=== PATIENT | male | born 1950 | race Caucasian/White ===

== ENCOUNTER 2022-10-24 23:19 | Outpatient (CLI) | payer MEDICARE, BC, SELFPAY | END 2022-10-24 23:20 | disposition home or self-care (01) | LOC: AMB 10-25 11:36 | PROVIDERS: Visit Provider Family Medicine | DX: R53.1 Weakness (principal) | CPT/HCPCS: A0425; A0427 ==

== ENCOUNTER 2022-10-25 00:07 | Emergency (ER) | payer MEDICARE, BC, SELFPAY ==
[2022-10-25 00:16] VITALS: BP 167/96; PULSE 113; TEMP 36.8; O2SAT 95; BMI 33.9
[2022-10-25 00:41] LABS: Appearance Urine Clear (Clear); Bilirubin Urine Negative (Negative); Blood Urine Negative (Negative); Color Urine Yellow (Yellow); Glucose Urine Trace (Negative); Ketones Urine Trace (Negative); Leukocyte Esterase Urine Negative (Negative); Nitrite Urine Negative (Negative); Protein Urine 3+ (Negative); Specific Gravity Urine 1.025 (1.000-1.030); Urobilinogen Urine 0.2 (0.2-1.0)
[2022-10-25 00:45] VITALS: O2SAT 98
--- NOTE | 2022-10-25 00:48 | ED.GENADULT ---
HPI - General Adult General Chief complaint: Weakness Stated complaint: weakness Time Seen by Provider: 10/25/22 00:07 Source: patient, family and EMS Mode of arrival: EMS History of Present Illness HPI narrative: 72-year-old male with notable history of chronic kidney disease, diabetes, hypertension presents to the emergency department for evaluation of generalized weakness. Symptoms started this evening. Patient reported that it was difficult to get up from the couch. Family brought up his walker from the basement which he no longer uses. He did briefly use a walker a few years ago after a about of COVID from which she had several weeks of illness but eventually rehabilitated back to baseline. Patient states that his arms and legs have felt weak today. When he got up to go to the bathroom this evening a couple of hours prior to arrival, he says that his legs felt weak again and buckled under him, causing him to fall. He denies any areas of pain but was unable to get himself back up. He states that when he went to stand up out of bed, he was unable to hold his own weight up and just slowly slid to the floor, no dramatic fall. Did not hit his head. His granddaughter was home at the time and heard the thud, went to check on him. He was fully conscious, no evidence of seizure activity. He states states had ?the sniffles? but no major illness. No fevers, no abdominal pain, no vomiting, no productive cough. On specific questioning, it does sound as though he was seen by his kidney doctor within the last couple of weeks. His lisinopril was increased from 20 mg once daily to 30 mg twice daily. His other medications do not appear to have been altered. I do review that visit, family is able to pull it up on my chart. At the time his creatinine was 1.04. He does have significant proteinuria but is renal ultrasound was reassuring. It looks like there are still some pending parts of the workup. The plan was to do a kidney biopsy if the proteinuria does not improve within a couple of months. He denies any NSAID use. No known illness exposures or pertinent travel. Past medical history notable for type 2 diabetes, hypertension, chronic kidney disease. Home meds are lisinopril 30 mg twice daily, not what is listed in the EMR, Crestor, Trulicity, aspirin 81 once daily, Tricor, metformin a 1000 twice daily pioglitazone and glipizide 20 mg twice daily. Socially, continues live independently does not receive any home health services. Has excellent family involvement. He will use a cane when going out from the house but not typically for ADLs. Surgical history reviewed. ROS is notable for the generalized weakness, otherwise denies times 12 systems. Related Data Home Medications Medication Instructions Recorded Confirmed aspirin 81 mg tablet,delayed 81 mg PO DAILY 10/25/22 10/25/22 release (Adult Low Dose Aspirin) dulaglutide 0.75 mg/0.5 mL 0.75 mg subcut QWEEK 10/25/22 10/25/22 subcutaneous pen injector (Trulicity) lisinopril 30 mg tablet 30 mg PO DAILY 10/25/22 10/25/22 rosuvastatin 20 mg tablet (Crestor) 20 mg PO DAILY 10/25/22 10/25/22 Allergies Allergy/AdvReac Type Severity Reaction Status Date / Time No Known Drug Allergies Allergy Verified 10/25/22 00:10 PFSH PFS Social History Smoking Status: Never smoker Do you use any of these nicotine containing products: None How often do you have a drink containing alcohol: never AUDIT-C Alcohol total score: 0 Non-prescribed substance use: denies use service: Yes ([employer]) Exam Const: Vital Signs, click to edit/add: Vital Signs - 24 hr 10/25/22 00:16 10/25/22 00:45 10/25/22 01:32 Temperature 98.3 F Pulse Rate 112 H Pulse Rate [Left P ulse Oximeter] 113 H Respiratory Rate 16 Blood Pressure 167/96 H Blood Pressure [Le ft Upper Arm] 167/96 H Pulse Oximetry 95 98 95 Oxygen Delivery Me thod Room Air 10/25/22 02:02 Temperature Pulse Rate 100 Pulse Rate [Left P ulse Oximeter] Respiratory Rate 16 Blood Pressure 165/99 H Blood Pressure [Le ft Upper Arm] Pulse Oximetry 96 Oxygen Delivery Me thod Documenting provider has reviewed patient's vital signs: yes Common normals: no apparent distress and alert General appearance: cooperative and well kempt HENMT: Common normals: normocephalic and head/scalp atraumatic Head and scalp: normocephalic and atraumatic Mouth: oral and palatal mucosa normal Throat: posterior oropharynx normal Eye: Common normals: PERRL, EOMs intact bilaterally and conjunctivae normal Conjunctiva: conjunctiva(e) normal Pupil: PERRL Neck & C-Spine: Common normals: full ROM and no lymphadenopathy Cervical spine: no cervical spine tenderness Resp: Common normals: normal respiratory effort, no use of accessory muscles and clear to auscultation bilaterally Effort & inspection: able to speak in complete sentences Auscultation: clear to auscultation bilaterally Cardio: Common normals: regular rate, regular rhythm, S1 normal heart sound, S2 normal heart sound and no murmurs Rate: regular rate Rhythm: regular rhythm Heart sounds: S1 normal and S2 normal GI: Common normals: Normal to inspection, nondistended, normoactive bowel sounds present, soft to palpation, non-tender, no hepatosplenomegaly and no masses Palpation: soft and no hepatosplenomegaly Extremity: Other: 1+ edema to the mid tibia. No obvious tenderness to palpation of the pelvis, knees, elbows or wrists. Neuro: Sensorium/orientation: alert Speech: speech normal Motor exam: no tremor noted and no movement abnormalities noted Other: Strength is technically 5/5 but reduced from what I would expect from baseline. He is able to pull himself up using the side rails but cannot hold himself up long enough to perform proper pulmonary exam. Psych: Appearance: well kempt Activity/motor behavior: appropriate eye contact Attention/concentration: attention grossly intact Insight: insight good Judgement: judgment good Skin: Common normals: no rashes or lesions noted Narrative: No signs of bruising, lacerations. General skin exam: no rashes or lesions noted Course Vital Signs Vital signs: Initial Vital Signs Temperature 98.3 F 10/25/22 00:16 Temperature Source Temporal Artery Scan 10/25/22 00:16 Pulse Rate 113 H 10/25/22 00:16 Pulse Rhythm 10/25/22 00:16 Blood Pressure 167/96 H 10/25/22 00:16 Blood Pressure Mean 119 10/25/22 00:16 Pulse Oximetry 95 10/25/22 00:16 Oxygen Delivery Method 10/25/22 00:16 Vital Signs Temperature 98.3 F 10/25/22 00:16 Pulse Rate 113 H 10/25/22 00:16 Blood Pressure 167/96 H 10/25/22 00:16 Pulse Oximetry 95 10/25/22 00:16 Oxygen Delivery Method 10/25/22 00:16 Temperature 98.3 F 10/25/22 00:16 Pulse Rate 100 10/25/22 02:02 Respiratory Rate 16 10/25/22 02:02 Blood Pressure 165/99 H 10/25/22 02:02 Pulse Oximetry 96 10/25/22 02:02 Oxygen Delivery Method 10/25/22 00:16 Medical Decision Making MDM Narrative Medical decision making narrative: Generalized weakness, suspect medical etiology. Infection high in the differential diagnosis but cannot exclude acute kidney failure and electrolyte abnormality from recent medication adjustments. Recommended initial labs, urinalysis, EKG, screenings for infection. Await results. Update: Labs are quite reassuring. The proteinuria is ongoing for him. No other localizing symptoms of infection besides positive COVID swab. This certainly would explain his weakness. Oxygen levels remain normal. We discussed hospitalization. He does not qualify for inpatient treatment but may qualify for observation. They are not interested in senior care placement. He would like to try to go home. Assures me that he has a walker, help at home. I insist that we try a trial of ambulation with a walker here in the emergency department and if he does well with this, I would consider discharge. Update: Patient was able to ambulate around the emergency department with the use of our walker. We did observe that the walker he brought is far too short for his tall frame. He was agreeable to us dispensing a walker from our supply and understands that his insurance will be billed for this. He did sign the paperwork as did I regarding this. Family and I discussed the risks and benefits of Paxil of it and the other medications for COVID. I do feel like the risk outweighs the benefits with his kidney disease. Family agrees that they would not want to take this risk. Alarm symptoms reviewed as indications to come back to the ED. They verbalized understanding and agreement. Lab Data Lab results reviewed: Yes I reviewed the patient's lab results Labs: Lab Results 10/25/22 10/25/22 10/25/22 Range/Units 00:26 00:26 01:00 WBC 9.47 (4.50-11.00) K/uL RBC 5.23 (4.30-5.90) m/uL Hgb 16.6 (13.5-17.5) gm/dL Hct 48.1 (37.0-53.0) % MCV 92 (80-100) fL MCH 32 (26-34) pg MCHC 35 (32-36) gm/dL RDW Coeff of [place] 12.5 (11.5-15.5) % Plt Count 183 (140-440) K/uL Neut % (Auto) 83.3 H (42.0-72.0) % Lymph % (Auto) 8.6 L (20-44) % [place] % (Auto) 6.1 (0.0-11.0) % Eos % (Auto) 1.3 (0.0-7.0) % Baso % (Auto) 0.4 (0.0-3.0) % Neut # (Auto) 7.90 H (1.7-7.0) K/uL Lymph # (Auto) 0.80 L (0.90-2.90) K/uL [place] # (Auto) 0.60 (0.00-0.90) K/UL Eos # (Auto) 0.12 (0.00-0.50) K/uL Baso # (Auto) 0.04 (0.00-0.30) K/uL VBG pH (7.32-7.43) VBG pCO2 (40-50) mmHG VBG pO2 (25-47) mmHG VBG HCO3 (21-28) mmol/L Sodium (135-149) mmol/L Potassium (3.6-5.1) mmol/L Chloride (96-114) mmol/L Carbon Dioxide (20-32) mmol/L BUN (7-30) mg/dL Creatinine (0.5-1.5) mg/dL Estimated Creat Clear Estimated GFR ml/min Glucose (60-115) mg/dL Lactate (0.5-1.9) mmol/L Calcium (8.4-10.6) mg/dL Magnesium (1.5-2.6) mg/dL Total Bilirubin (0.1-1.5) mg/dL AST (12-35) U/L ALT (4-50) U/L Alkaline Phosphatase (40-150) U/L Troponin I (0.01-0.04) ng/mL C-Reactive Protein (0.5-1.0) mg/dL NT-Pro-B Natriuret Pep pg/mL Total Protein (6.0-8.3) g/dL Albumin (3.3-5.0) g/dL Procalcitonin (<0.50) ng/mL Urine Color Yellow (Yellow) Urine Appearance Clear (Clear) Urine pH 7.0 (5.0-8.5) Ur Specific [place] 1.025 (1.000-1.030) Urine Protein 3+ A (Negative) Urine Glucose (UA) Trace A (Negative) Urine Ketones Trace A (Negative) Urine Blood Negative (Negative) Urine Nitrite Negative (Negative) Urine Bilirubin Negative (Negative) Urine Urobilinogen 0.2 (0.2-1.0) Ur Leukocyte Esterase Negative (Negative) Urine RBC 0-2 (0-2) Urine WBC 0-2 (0-5) Ur Squamous Epith Cells Few (None-Few) Amorphous Sediment Few A (None) Urine Bacteria None (None) SARS-CoV-2 (PCR) POSITIVE SARS-CoV-2 A (Negative) Influenza Type A (PCR) Negative PCR FLU A (Negative) Influenza Type B (PCR) Negative PCR FLU B (Negative) RSV (PCR) Negative PCR RSV (Negative) POC Troponin I (0.01-0.04) ng/ml 10/25/22 10/25/22 10/25/22 Range/Units 01:00 01:00 01:00 WBC (4.50-11.00) K/uL RBC (4.30-5.90) m/uL Hgb (13.5-17.5) gm/dL Hct (37.0-53.0) % MCV (80-100) fL MCH (26-34) pg MCHC (32-36) gm/dL RDW Coeff of [place] (11.5-15.5) % Plt Count (140-440) K/uL Neut % (Auto) (42.0-72.0) % Lymph % (Auto) (20-44) % [place] % (Auto) (0.0-11.0) % Eos % (Auto) (0.0-7.0) % Baso % (Auto) (0.0-3.0) % Neut # (Auto) (1.7-7.0) K/uL Lymph # (Auto) (0.90-2.90) K/uL [place] # (Auto) (0.00-0.90) K/UL Eos # (Auto) (0.00-0.50) K/uL Baso # (Auto) (0.00-0.30) K/uL VBG pH (7.32-7.43) VBG pCO2 (40-50) mmHG VBG pO2 (25-47) mmHG VBG HCO3 (21-28) mmol/L Sodium 137 (135-149) mmol/L Potassium 4.2 (3.6-5.1) mmol/L Chloride 104 (96-114) mmol/L Carbon Dioxide 25 (20-32) mmol/L BUN 18 (7-30) mg/dL Creatinine 1.1 (0.5-1.5) mg/dL Estimated Creat Clear 65.65 Estimated GFR 71 ml/min Glucose 218 H (60-115) mg/dL Lactate 2.2 H (0.5-1.9) mmol/L Calcium 9.5 (8.4-10.6) mg/dL Magnesium 1.4 L (1.5-2.6) mg/dL Total Bilirubin 0.7 (0.1-1.5) mg/dL AST 26 (12-35) U/L ALT 28 (4-50) U/L Alkaline Phosphatase 81 (40-150) U/L Troponin I 0.01 (0.01-0.04) ng/mL C-Reactive Protein 1.4 H (0.5-1.0) mg/dL NT-Pro-B Natriuret Pep 66 pg/mL Total Protein 6.4 (6.0-8.3) g/dL Albumin 4.0 (3.3-5.0) g/dL Procalcitonin 0.08 (<0.50) ng/mL Urine Color (Yellow) Urine Appearance (Clear) Urine pH (5.0-8.5) Ur Specific [place] (1.000-1.030) Urine Protein (Negative) Urine Glucose (UA) (Negative) Urine Ketones (Negative) Urine Blood (Negative) Urine Nitrite (Negative) Urine Bilirubin (Negative) Urine Urobilinogen (0.2-1.0) Ur Leukocyte Esterase (Negative) Urine RBC (0-2) Urine WBC (0-5) Ur Squamous Epith Cells (None-Few) Amorphous Sediment (None) Urine Bacteria (None) SARS-CoV-2 (PCR) (Negative) Influenza Type A (PCR) (Negative) Influenza Type B (PCR) (Negative) RSV (PCR) (Negative) POC Troponin I (0.01-0.04) ng/ml 10/25/22 10/25/22 Range/Units 01:00 01:05 WBC (4.50-11.00) K/uL RBC (4.30-5.90) m/uL Hgb (13.5-17.5) gm/dL Hct (37.0-53.0) % MCV (80-100) fL MCH (26-34) pg MCHC (32-36) gm/dL RDW Coeff of [place] (11.5-15.5) % Plt Count (140-440) K/uL Neut % (Auto) (42.0-72.0) % Lymph % (Auto) (20-44) % [place] % (Auto) (0.0-11.0) % Eos % (Auto) (0.0-7.0) % Baso % (Auto) (0.0-3.0) % Neut # (Auto) (1.7-7.0) K/uL Lymph # (Auto) (0.90-2.90) K/uL [place] # (Auto) (0.00-0.90) K/UL Eos # (Auto) (0.00-0.50) K/uL Baso # (Auto) (0.00-0.30) K/uL VBG pH 7.427 (7.32-7.43) VBG pCO2 38 L (40-50) mmHG VBG pO2 25.0 (25-47) mmHG VBG HCO3 25 (21-28) mmol/L Sodium (135-149) mmol/L Potassium (3.6-5.1) mmol/L Chloride (96-114) mmol/L Carbon Dioxide (20-32) mmol/L BUN (7-30) mg/dL Creatinine (0.5-1.5) mg/dL Estimated Creat Clear Estimated GFR ml/min Glucose (60-115) mg/dL Lactate (0.5-1.9) mmol/L Calcium (8.4-10.6) mg/dL Magnesium (1.5-2.6) mg/dL Total Bilirubin (0.1-1.5) mg/dL AST (12-35) U/L ALT (4-50) U/L Alkaline Phosphatase (40-150) U/L Troponin I (0.01-0.04) ng/mL C-Reactive Protein (0.5-1.0) mg/dL NT-Pro-B Natriuret Pep pg/mL Total Protein (6.0-8.3) g/dL Albumin (3.3-5.0) g/dL Procalcitonin (<0.50) ng/mL Urine Color (Yellow) Urine Appearance (Clear) Urine pH (5.0-8.5) Ur Specific [place] (1.000-1.030) Urine Protein (Negative) Urine Glucose (UA) (Negative) Urine Ketones (Negative) Urine Blood (Negative) Urine Nitrite (Negative) Urine Bilirubin (Negative) Urine Urobilinogen (0.2-1.0) Ur Leukocyte Esterase (Negative) Urine RBC (0-2) Urine WBC (0-5) Ur Squamous Epith Cells (None-Few) Amorphous Sediment (None) Urine Bacteria (None) SARS-CoV-2 (PCR) (Negative) Influenza Type A (PCR) (Negative) Influenza Type B (PCR) (Negative) RSV (PCR) (Negative) POC Troponin I 0.00 L (0.01-0.04) ng/ml Discharge Plan Discharge Clinical Impression: Episode of generalized weakness, COVID Patient Disposition: Home w/ Parent or Adult Condition: Stable Instructions: COVID-19 (Coronavirus Disease 2019) (ED) Additional Instructions: Since you are vaccinated, your course of COVID this time is likely to be less severe. Your much less likely to experience respiratory complications. You are still likely to have weakness of your muscles for 5-10 days. You do not meet criteria to come into the hospital at this time and have declined a senior care. As we discussed, there are medications that can lessen the severity of COVID. They tend to be very hard on the kidneys and therefore I do not recommend them for you. It is important that you use a walker at home. Ask for help from her family for going to the bathroom and other activities. Is okay to use Tylenol as needed for body aches. Come back to the emergency department if you are severely weak or if you have difficulty breathing. Activity Level: Activity as Tolerated and Use Walker Discharge Diet: Diabetic Prescriptions: No Action Trulicity 0.75 mg/0.5 mL pen injector 0.75 mg subcut QWEEK aspirin [Adult Low Dose Aspirin] 81 mg tablet,delayed release (DR/EC) 81 mg PO DAILY lisinopril 30 mg tablet 30 mg PO DAILY rosuvastatin [Crestor] 20 mg tablet 20 mg PO DAILY Follow Up/Referrals: Provider,Not a Local [Primary Care Provider] - Stand Alone Forms: [employer] Info Instructions
[2022-10-25 00:59] LABS: Amorphous Sediment Urine Few; RBC Urine 0-2 (0-2); Squamous Epithelial Cell Urine Few (None-Few); WBC Urine 0-2 (0-5)
[2022-10-25 01:14] LABS: Basophils Absolute Auto 0.04 K/uL (0.00-0.30); Basophils Percent Auto 0.4 % (0.0-3.0); Eosinophils Absolute Auto 0.12 K/uL (0.00-0.50); Eosinophils Percent Auto 1.3 % (0.0-7.0); Hematocrit 48.1 % (37.0-53.0); Hemoglobin* 16.6 gm/dL (13.5-17.5); Immature Granulocytes Abs Auto 0.03 K/uL (0.00-0.30); Immature Granulocytes Pct Auto 0.3 %; Lymphocytes Percent Auto 8.6 % (20-44); Mean Corpuscular HGB Conc 35 gm/dL (32-36); Mean Corpuscular Hemoglobin 32 pg (26-34); Mean Corpuscular Volume 92 fL (80-100); Monocytes Percent Auto 6.1 % (0.0-11.0); Neutrophils Percent Auto 83.3 % (42.0-72.0); Platelet Count* 183 K/uL (140-440); RDW Coefficient of Variation % 12.5 % (11.5-15.5); Red Blood Count 5.23 m/uL (4.30-5.90); White Blood Count* 9.47 K/uL (4.50-11.00)
[2022-10-25 01:14] LABS: PCR FLU A Negative PCR FLU A (Negative); PCR FLU B Negative PCR FLU B (Negative); PCR RSV Negative PCR RSV (Negative)
[2022-10-25 01:20] LABS: Slide Review Reflex No
[2022-10-25 01:28] LABS: HCO3 VBG 25 mmol/L (21-28); PCO2 VBG 38 mmHG (40-50); pH VBG 7.427 (7.32-7.43)
[2022-10-25 01:32] VITALS: BP 167/96; PULSE 112; RESP 16; O2SAT 95
[2022-10-25 01:34] LABS: Chloride* 104 mmol/L (96-114); Potassium* 4.2 mmol/L (3.6-5.1); Sodium* 137 mmol/L (135-149)
[2022-10-25 01:36] LABS: SARS PCR* POSITIVE SARS-CoV-2 (Negative)
[2022-10-25 01:36] LABS: Creatinine* 1.1 mg/dL (0.5-1.5); Est. Creatinine Clearance* 65.65; Estimated Glomerular Filt Rate 71 ml/min; Lactate* 2.2 mmol/L (0.5-1.9)
[2022-10-25 01:37] LABS: Alanine Aminotransferase* 28 U/L (4-50); Alkaline Phosphatase* 81 U/L (40-150); Aspartate Amino Transferase* 26 U/L (12-35); Bilirubin Total* 0.7 mg/dL (0.1-1.5); Blood Urea Nitrogen* 18 mg/dL (7-30); Carbon Dioxide* 25 mmol/L (20-32); Glucose* 218 mg/dL (60-115); Total Protein* 6.4 g/dL (6.0-8.3)
[2022-10-25 01:38] LABS: Calcium* 9.5 mg/dL (8.4-10.6); Magnesium* 1.4 mg/dL (1.5-2.6)
[2022-10-25 01:40] LABS: C Reactive Protein* 1.4 mg/dL (0.5-1.0)
[2022-10-25 01:48] LABS: NT Pro B Type NatriureticPept* 66 pg/mL
[2022-10-25 01:49] LABS: Troponin I* 0.01 ng/mL (0.01-0.04)
[2022-10-25 01:56] LABS: Procalcitonin* 0.08 ng/mL (<0.50)
[2022-10-25 02:02] VITALS: BP 165/99; PULSE 100; RESP 16; O2SAT 96
--- NOTE | 2022-10-25 02:21 | ED.NURSE ---
pt. able to ambulate with walker around ER. pt. denies dizziness, lightheadedness. will problaby d/c home with granddaughter.
--- NOTE | 2022-10-25 02:33 | ED.NURSE ---
walker form filled out by , pt took walker from house sup. education and sizing adjusted. pt able to walk in hallway in ED to pass walking test for .
== END 2022-10-25 02:48 | disposition home or self-care (01) ==
PROVIDERS: Emergency Provider Family Medicine
DX: U07.1 COVID-19 (principal)
CPT/HCPCS: 36415; 80053; 81003; 81015; 82803; 83605; 83735; 83880; 84145; 84484; 85025; 86140; 87502; 87634; 87635; 93005; 94761; 99283; 99284

== ENCOUNTER 2022-10-28 01:47 | Outpatient (CLI) | payer MEDICARE, BC, SELFPAY | END 2022-10-28 01:48 | disposition home or self-care (01) | LOC: AMB 11:10 | PROVIDERS: Visit Provider Family Medicine | DX: R53.1 Weakness (principal) | CPT/HCPCS: A0998 ==

== ENCOUNTER 2023-04-10 18:43 | Emergency (ER) | payer MEDICARE, BC, SELFPAY ==
[2023-04-10] VITALS (14 sets, daily range): BP systolic 128–142; BP diastolic 75–88; PULSE 70–84; RESP 20; TEMP 35.9; O2SAT 94–98; BMI 33.9
--- NOTE | 2023-04-10 19:21 | ED.NURSE ---
Patient pushed call button to reports return of dizziness. Blood pressure and pulse oximetry were check and neuro exam. Patient has nystagmus noted in both eyes, all other neuro's intact. MD was notified.
--- NOTE | 2023-04-10 19:56 | CRLHL7_ITS ---
For Patients: As a result of the Century Cures Act, medical imaging exams and procedure reports are released immediately into your electronic medical record. You may view this report before your referring provider. If you have questions, please contact your health care provider. CT ANGIOGRAM HEAD DATE: 04/10/2023 CLINICAL HISTORY: Patient with dizziness and vertigo. TECHNIQUE: Standard helical CT image acquisition through the intracranial circulation following intravenous administration of contrast material with bolus tracking. 2D and 3D MIP images for post-processing were performed and interpreted on an independent workstation and 3D images were permanently archived. COMPARISON: CT same day. FINDINGS: There is no proximal intracranial large vessel occlusion. There is no intracranial aneurysm. The right internal carotid artery is normal. The right middle cerebral artery and its branches are normal. The right anterior cerebral artery and its branches are normal. The left internal carotid artery is normal. The left middle cerebral artery and its branches are normal. The left anterior cerebral artery and its branches are normal. The anterior communicating artery is well visualized and appears normal. The right vertebral artery and PICA are normal. The left vertebral artery and PICA are normal. The left vertebral artery is dominant. The basilar artery is patent and appears normal. The right posterior cerebral artery is normal. The left posterior cerebral artery is normal. The visualized venous structures are patent. IMPRESSION: Patent proximal intracranial vasculature. Please note that all CT scans at this facility use dose modulation, iterative reconstruction, and/or weight-based dosing when appropriate to reduce radiation dose to as low as reasonably achievable. Dictated by: Alphonso Singer MD @ 04/10/2023 21:35:11 (Electronically Signed)
--- NOTE | 2023-04-10 19:56 | CRLHL7_ITS ---
For Patients: As a result of the Century Cures Act, medical imaging exams and procedure reports are released immediately into your electronic medical record. You may view this report before your referring provider. If you have questions, please contact your health care provider. CT ANGIOGRAM NECK DATE: 04/10/2023 CLINICAL HISTORY: Patient with dizziness, vertigo. TECHNIQUE: Standard helical CT image acquisition of the neck up to the skull base after bolus intravenous contrast enhancement. 2D and 3D MIP images for post-processing were performed and interpreted on an independent workstation and 3D images were permanently archived. COMPARISON: CT same day. FINDINGS: The origins of the great vessels from the aortic arch are patent. The origin of the right vertebral artery is patent. The origin of the left vertebral artery is patent. The common carotid arteries are patent. There is no stenosis at the origin of the right internal carotid artery. There is no stenosis at the origin of the left internal carotid artery. The rest of the cervical segments of the internal carotid arteries are patent up to the skull base. The left vertebral artery is dominant. The cervical segments of the vertebral arteries are patent up to the skull base. The visualized lung apices are unremarkable. 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 The soft tissues of the neck are unremarkable. There are degenerative changes in the cervical spine. IMPRESSION: Normal CTA of the neck. Please note that all CT scans at this facility use dose modulation, iterative reconstruction, and/or weight-based dosing when appropriate to reduce radiation dose to as low as reasonably achievable. Dictated by: Alphonso Singer MD @ 04/10/2023 21:33:52 (Electronically Signed)
--- NOTE | 2023-04-10 19:57 | CRLHL7_ITS ---
For Patients: As a result of the Century Cures Act, medical imaging exams and procedure reports are released immediately into your electronic medical record. You may view this report before your referring provider. If you have questions, please contact your health care provider. CT HEAD DATE: 04/10/2023 CLINICAL HISTORY: Patient with dizziness and vertigo. TECHNIQUE: Standard CT scanning of the head was performed. COMPARISON: None. FINDINGS: There is no intracranial hemorrhage. There is no territorial infarction. There are mild microangiopathic changes. There is severe diffuse parenchymal volume loss. There is no mass effect or midline shift. The calvarium is unremarkable. The orbits are unremarkable. The paranasal sinuses demonstrate mild maxillary sinus mucosal thickening. The mastoid air cells are unremarkable. The soft tissues are unremarkable. IMPRESSION: 1. No intracranial hemorrhage or territorial infarction. 2. Mild microangiopathic changes and severe diffuse parenchymal volume loss. Please note that all CT scans at this facility use dose modulation, iterative reconstruction, and/or weight-based dosing when appropriate to reduce radiation dose to as low as reasonably achievable. Dictated by: Alphonso Singer MD @ 04/10/2023 21:31:12 (Electronically Signed)
--- NOTE | 2023-04-10 19:59 | ED.GENADULT ---
HPI - General Adult General Date Seen: 04/10/23 Chief complaint: Dizziness/Vertigo Stated complaint: bp is high, dizzy Time Seen by Provider: 04/10/23 19:03 History of Present Illness HPI narrative: This is a very pleasant 73-year-old gentleman with a past medical history including diabetes, hypertension, overweight, who presents to the ER today with his granddaughter with concern for dizzy spells and vertigo as well as high blood pressure. Patient recalls that when he woke up this morning (he normally sleep laying on his side in bed) he had a fairly abrupt onset of spinning dizziness and vertigo. Symptoms lasted a few minutes and then resolved. No other symptoms with that episode. No headache. No nausea. No numbness or tingling in his face, arms, or legs. He generally felt back to normal later on this morning. He had another episode of dizziness that happened this afternoon when he woke up from his nap. He was again napping in bed. This episode was again vertigo without any other symptoms. It lasted a few minutes and then resolved. And his granddaughter were checking his vital signs. Blood pressure was a bit elevated about 150 systolic. Blood sugar was elevated at 191. Oxygen was normal at 98%. Because of the dizzy spells and high blood pressure they decided to come in he had a 3rd self limited episode of vertigo and dizziness that happened while he was on the way to the hospital. He had a 4th episode of vertigo that happened while he was resting in bed upon arrival here in the ER. No other symptoms aside from spinning and dizziness. At the time of my evaluation he is not having any symptoms. No headache. No recent head trauma. No fever. No blurry vision or double vision. No nausea or vomiting. No chest pain. No palpitations. No lightheadedness. No other recent vomiting or diarrhea. He does not smoke. Related Data Home Medications Medication Instructions Recorded Confirmed aspirin 81 mg tablet,delayed 81 mg PO DAILY 10/25/22 04/10/23 release (Adult Low Dose Aspirin) dulaglutide 0.75 mg/0.5 mL 0.75 mg subcut QWEEK 10/25/22 04/10/23 subcutaneous pen injector (Trulicity) lisinopril 30 mg tablet 30 mg PO DAILY 10/25/22 04/10/23 rosuvastatin 20 mg tablet (Crestor) 20 mg PO DAILY 10/25/22 04/10/23 amlodipine 2.5 mg tablet 2.5 mg PO DAILY 04/10/23 04/10/23 fenofibrate nanocrystallized 48 mg 48 mg PO DAILY 04/10/23 04/10/23 tablet glipizide 10 mg tablet 20 mg PO BID 04/10/23 04/10/23 metformin 1,000 mg tablet 1,000 mg PO BID 04/10/23 04/10/23 pioglitazone 15 mg tablet 15 mg PO DAILY 04/10/23 04/10/23 Previous Rx's Medication Instructions Recorded meclizine 25 mg tablet 25 mg PO TID PRN dizziness #15 tabs 04/10/23 Allergies Allergy/AdvReac Type Severity Reaction Status Date / Time No Known Drug Allergies Allergy Verified 10/25/22 00:10 Review of Systems Narrative: Negative [facility] Social History Smoking Status: Never smoker Do you use any of these nicotine containing products: None How often do you have a drink containing alcohol: never AUDIT-C Alcohol total score: 0 Non-prescribed substance use: denies use service: Yes ([employer]) Exam Narrative: Exam Narrative: Constitutional: Appears well-developed and well-nourished. Alert. Conversant. Non toxic. HENT: Head: Atraumatic. Nose: Nose normal. Mouth/Throat: Oral mucosa is clear and moist. no trismus. Pharynx normal. Tonsils symmetric. No tonsillar enlargement, erythema, or exudate. Eyes: Conjunctivae normal. EOM normal. Pupils equal, round, and reactive to light. No scleral icterus. Neck: Normal range of motion. Neck supple. No tracheal deviation present. Cardiovascular: Normal rate, regular rhythm. No gallop. No friction rub. No murmur heard. Symmetric radial artery pulses Pulmonary/Chest: Effort normal. No stridor. No respiratory distress. No wheezes. No rales. No rhonchi . No tenderness. Abdominal: Soft. Bowel sounds normal. No distension. No mass. No tenderness. No rebound. No guarding. Musculoskeletal: RUE: Normal range of motion. No tenderness. No deformity LUE: Normal range of motion. No tenderness. No deformity RLE: Normal range of motion. No edema. No tenderness. No deformity LLE: Normal range of motion. No edema. No tenderness. No deformity Lymph: No cervical adenopathy. Mental status normal. Attention normal. Alert and oriented x3. GCS 15. Memory normal. Speech fluent. Cognition normal. Cranial Nerves intact II-XII except I did not formally test gag or visual acuity. EOMI. Palate elevates symmetrically and tongue protrudes in the midline. Strength: 5/5 trapezius on the right and left 5/5 deltoid on the right and left 5/5 biceps on the right and left 5/5 triceps on the right and left 5/5 patternmaker metal bench on the right and left 5/5 thumb opposition on the right and left 5/5 finger abduction on the right and left 5/5 hip flexors (L3) on the right and left 5/5 quadriceps (L4) on the right and left 5/5 tibialis anterior on the right and left 5/5 EHL (L5) on the right and left 5/5 gastrocnemius (S1) on the right and left 5/5 hamstring on the right and left Sensation intact to light touch in both upper extremities (C4-T1) Sensation intact to light touch in Both lower extremities (L4-S1). Finger to nose, heel martinez, and coordination normal. Gait normal. Romberg negative. [place]-Hallpike maneuver with his head turned to the left does trigger vertigo and positive horizontal nystagmus . In this case I am not able really to identify the fast and slow phase of the nystagmus. Vertigo was fatigable.. We followed [place]-Hallpike maneuver with Jay maneuver. We were able to trigger another episode of fatigable vertigo turning his head to the right but not able to trigger much vertigo turning his head down. After completion of Jay, When he sat back up, he still had mild vertigo, but less intense than the episodes prior to arrival. Skin: Skin is warm and dry. No rash noted. No pallor. Normal capillary refill. Psychiatric: Normal mood. Normal affect. Const: Vital Signs, click to edit/add: Vital Signs - 24 hr 04/10/23 18:48 04/10/23 19:19 04/10/23 19:20 Temperature 96.7 F L Pulse Rate 77 74 Pulse Rate [Pulse Oximeter] 82 Respiratory Rate 20 Blood Pressure 133/81 Blood Pressure [Ri ght Upper Arm] 128/75 Pulse Oximetry 96 94 94 Oxygen Delivery Me thod Room Air 04/10/23 19:30 Temperature Pulse Rate 74 Pulse Rate [Pulse Oximeter] Respiratory Rate Blood Pressure Blood Pressure [Ri ght Upper Arm] Pulse Oximetry 95 Oxygen Delivery Me thod Course Vital Signs Vital signs: Initial Vital Signs Temperature 96.7 F L 04/10/23 18:48 Temperature Source Temporal Artery Scan 04/10/23 18:48 Pulse Rate 82 04/10/23 18:48 Respiratory Rate 20 04/10/23 18:48 Blood Pressure 128/75 04/10/23 18:48 Blood Pressure Mean 92 04/10/23 18:48 Blood Pressure Position Supine 04/10/23 18:48 Pulse Oximetry 96 04/10/23 18:48 Oxygen Delivery Method Room Air 04/10/23 18:48 Vital Signs Temperature 96.7 F L 04/10/23 18:48 Pulse Rate 82 04/10/23 18:48 Respiratory Rate 20 04/10/23 18:48 Blood Pressure 128/75 04/10/23 18:48 Pulse Oximetry 96 04/10/23 18:48 Oxygen Delivery Method Room Air 04/10/23 18:48 Temperature 96.7 F L 04/10/23 18:48 Pulse Rate 74 04/10/23 19:30 Respiratory Rate 20 04/10/23 18:48 Blood Pressure 133/81 04/10/23 19:19 Pulse Oximetry 95 04/10/23 19:30 Oxygen Delivery Method Room Air 04/10/23 18:48 Medical Decision Making MDM Narrative Medical decision making narrative: This patient presents for evaluation of dizziness c/w vertigo. Laboratory workup does not show any other alternative explanation for dizziness such as ACS, anemia, electrolyte disturbance, hypoglycemia. Kidney function is normal. EKG shows sinus rhythm with a first-degree AV block. No arrhythmia or ischemia. The differential diagnosis of vertigo is broad and includes common etiologies such as menieres disease, labyrinthitis, benign positional vertigo, otitis media, etc. More serious etiologies considered include central etiologies such as tumor, intracerebral bleed, dissection, ischemic cerebral vascular accident. The history, physical exam including detailed neurologic exam, and workup in the emergency room suggests a benign cause of vertigo today. Clinically I am suspicious that the patient probably has been experiencing episodes of BPPV. We were able to trickle vertigo with [place]-Hallpike starting with his head turned to left but not able to completely resolve the vertigo with an Jay maneuver. Patient has risk factors for cerebrovascular disease including hypertension, diabetes, weight, age, gender. He was not having any active vertigo symptoms by the time I evaluated in the ER. However blood pressure was still mildly elevated at about 150 when he 1st arrived. I did order labs and head CT/CTA for further evaluation. At the time of this dictation the patient is remaining asymptomatic after the Jay maneuver. We are awaiting the results of his CT CTA. Discussed with my oncoming partner. Discussed with the patient and his granddaughter. They are aware of the change in positions and the potential plan for discharge if CT imaging is reassuring. Lab Data Labs: Lab Results 04/10/23 Range/Units 20:13 WBC 7.02 (4.50-11.00) K/uL RBC 5.27 (4.30-5.90) m/uL Hgb 16.6 (13.5-17.5) gm/dL Hct 49.7 (37.0-53.0) % MCV 94 (80-100) fL MCH 32 (26-34) pg MCHC 33 (32-36) gm/dL RDW Coeff of Yamileth 13.0 (11.5-15.5) % Plt Count 185 (140-440) K/uL Neut % (Auto) 59.7 (42.0-72.0) % Lymph % (Auto) 26.9 (20-44) % Fountain % (Auto) 8.4 (0.0-11.0) % Eos % (Auto) 4.1 (0.0-7.0) % Baso % (Auto) 0.6 (0.0-3.0) % Neut # (Auto) 4.19 (1.7-7.0) K/uL Lymph # (Auto) 1.89 (0.90-2.90) K/uL Fountain # (Auto) 0.60 (0.00-0.90) K/UL Eos # (Auto) 0.29 (0.00-0.50) K/uL Baso # (Auto) 0.04 (0.00-0.30) K/uL Abs Immat Gran (auto) 0.02 (0.00-0.30) K/uL Imm/Tot Granulo (auto) 0.3 % Sodium 139 (135-149) mmol/L Potassium 4.8 (3.6-5.1) mmol/L Chloride 104 (96-114) mmol/L Carbon Dioxide 25 (20-32) mmol/L Anion Gap 10 (7-15) mEq/L BUN 21 (7-30) mg/dL Creatinine 1.3 (0.5-1.5) mg/dL Estimated Creat Clear 54.72 Estimated GFR 58 ml/min Glucose 180 H (60-115) mg/dL Calcium 10.3 (8.4-10.6) mg/dL Troponin I < 0.01 L (0.01-0.04) ng/mL ECG Data Attestation: I personally reviewed and interpreted this ECG as follows: Interpretation: Normal sinus rhythm rate 74 [place] 254. First degree AV block QRS axis left anterior fascicular block. No pathologic Q-waves. ST segment/T wave: No ST segment elevation depression. QTc: 421 Discharge Plan Discharge Clinical Impression: Vertigo Instructions: Vertigo (ED), Benign Paroxysmal Positional Vertigo (DC) Additional Instructions: Please return to the ER right away if you have any worsening symptoms such as more extended. The vertigo, headache, vomiting, numbness or tingling in your face, trouble speaking, numbness or tingling or weakness in your arms or legs, trouble walking, or if you have any concerns. Prescriptions: New meclizine 25 mg tablet 25 mg PO TID PRN (Reason: dizziness) Qty: 15 0RF No Action Trulicity 0.75 mg/0.5 mL pen injector 0.75 mg subcut QWEEK aspirin [Adult Low Dose Aspirin] 81 mg tablet,delayed release (DR/EC) 81 mg PO DAILY lisinopril 30 mg tablet 30 mg PO DAILY rosuvastatin [Crestor] 20 mg tablet 20 mg PO DAILY pioglitazone 15 mg tablet 15 mg PO DAILY glipizide 10 mg tablet 20 mg PO BID amlodipine 2.5 mg tablet 2.5 mg PO DAILY metformin 1,000 mg tablet 1,000 mg PO BID fenofibrate nanocrystallized 48 mg tablet 48 mg PO DAILY Follow Up/Referrals: Provider,Not a Local [Primary Care Provider] -
[2023-04-10 20:18] LABS: Basophils Absolute Auto 0.04 K/uL (0.00-0.30); Basophils Percent Auto 0.6 % (0.0-3.0); Eosinophils Absolute Auto 0.29 K/uL (0.00-0.50); Eosinophils Percent Auto 4.1 % (0.0-7.0); Hematocrit 49.7 % (37.0-53.0); Hemoglobin* 16.6 gm/dL (13.5-17.5); Immature Granulocytes Abs Auto 0.02 K/uL (0.00-0.30); Immature Granulocytes Pct Auto 0.3 %; Lymphocytes Absolute Auto 1.89 K/uL (0.90-2.90); Lymphocytes Percent Auto 26.9 % (20-44); Mean Corpuscular HGB Conc 33 gm/dL (32-36); Mean Corpuscular Hemoglobin 32 pg (26-34); Mean Corpuscular Volume 94 fL (80-100); Monocytes Percent Auto 8.4 % (0.0-11.0); Neutrophils Absolute Auto 4.19 K/uL (1.7-7.0); Neutrophils Percent Auto 59.7 % (42.0-72.0); Platelet Count* 185 K/uL (140-440); Red Blood Count 5.27 m/uL (4.30-5.90); White Blood Count* 7.02 K/uL (4.50-11.00)
[2023-04-10 20:24] LABS: Slide Review Reflex No
[2023-04-10 20:32] LABS: Chloride* 104 mmol/L (96-114); Potassium* 4.8 mmol/L (3.6-5.1); Sodium* 139 mmol/L (135-149)
[2023-04-10 20:34] LABS: Creatinine* 1.3 mg/dL (0.5-1.5); Est. Creatinine Clearance* 54.72; Estimated Glomerular Filt Rate 58 ml/min
[2023-04-10 20:35] LABS: Anion Gap 10 mEq/L (7-15); Blood Urea Nitrogen* 21 mg/dL (7-30); Calcium* 10.3 mg/dL (8.4-10.6); Carbon Dioxide* 25 mmol/L (20-32); Glucose* 180 mg/dL (60-115)
[2023-04-10] MEDS: MECLIZINE HCL 25 MG TABLET PO (20:36)
[2023-04-10 20:48] LABS: Troponin I* < 0.01 ng/mL (0.01-0.04)
== END 2023-04-10 22:14 | disposition home or self-care (01) ==
PROVIDERS: Emergency Provider Emergency Medicine
DX: R42 Dizziness and giddiness (principal)
CPT/HCPCS: 36415; 70450; 70496; 70498; 80048; 82565; 84484; 85025; 99283; 99284; 99285; A9270; Q9967

== ENCOUNTER 2025-07-24 13:07 | Emergency (ER) | payer MEDICARE, BC, SELFPAY ==
[2025-07-24 13:09] VITALS: BP 144/88; PULSE 81; RESP 16; TEMP 36.1; O2SAT 98; BMI 31.9
--- OUTSIDE RECORDS SUMMARY | 2025-07-24 13:23 | XMS_ITS | Encounter Summary ---
Author Organization [place] Address [address] [facility] [place] [address] Care Team Providers Care Roasterman Name Role Phone Maricel Marinelli MD Unavailable [phone] Ashleigh Walden MD Unavailable [phone] Ashleigh Walden MD Unavailable [phone] Ashleigh Walden MD Unavailable [phone] Maricel Marinelli MD Primary Care Provider [phone] Reason for Visit * ReasonOnset DateCommentsMedication Mhbvtmgn30/07/2025 Encounter Details DateTypeDepartmentCare Team (Latest Contact Info)Rknpvaooeks80/07/2025Telephone [address] [place] [address] Maricel Marinelli MD [address] [place] [address] [id number] Medication Question Social History Tobacco UseTypesPacks/DayYears UsedDateSmoking Tobacco: NeverPassive Smoke Exposure: PastSmokeless Tobacco: NeverAlcohol UseStandard Drinks/WeekCommentsYes 0.8 (1 standard drink = 0.6 oz pure alcohol)special occasions onlyPHQ-2Answer Date RecordedPHQ-2 Innlp683dolescent EducationAnswerDate Recorded Getting School Help NeededNot on 04/29/2023Food InsecurityAnswerDate RecordedWithin the past 12 months, did you worry that your food would run out before you got money to buy more?No06/01/2023Within the past 12 months, did the food you bought just not last and you didn???t have money to getmore?No 06/01/2023Housing StabilityAnswerDate RecordedDo you have housing? (Housing is defined as stable permanent housing and does not include staying outside in a car, in a tent, in an abandoned building, in an overnight intermediate, or couch-surfing.)Yes06/01/2023re you worried about losing your housing?No 06/01/2023Financial Resource StrainAnswerDate RecordedWithin the past 12 months, have you or your family members you live with been unable to get utilities (heat, electricity) when it was really needed?No06/01/2023Transportation Needs AnswerDate RecordedWithin the past 12 months, has lack of transportation kept you from medical appointments, getting your medicines, non-medical meetings or appointments, work, or from getting things that you need?No06/01/2023Sex and Gender InformationValueDate RecordedSex Assigned at BqowdNevf07/23/2022 2:52 PM CSTLegal CmjDiie4110/27/2020 4:43 PM CDTGender QcdfdydjVvtp28/23/2022 2:52 PM BUILDING MAINTENANCE REPAIRER Sexual OyzurezxxpyZteszqny67/23/2022 2:52 PM CSTdocumented as of this encounter Miscellaneous Notes * Telephone Encounter - Kait Braxton MA - 06/23/2025 11:55 AM BUILDING MAINTENANCE REPAIRER Patient notified. He understands. DING MAINTENANCE REPAIRER * Telephone Encounter - Dominique Garza LPN - 06/20/2025 12:23 PM BUILDING MAINTENANCE REPAIRER Contacts Contact Date/Time Type Contact Phone/Fax 06/13/2025 10:29 AM BUILDING MAINTENANCE REPAIRER Phone (Incoming) Kale Baird (Self) [phone] (M) 06/13/2025 12:15 PM BUILDING MAINTENANCE REPAIRER Phone (Outgoing) aMritzaKale phillips (Self) [phone] (M) Talked with Patient 06/20/2025 12:05 PM BUILDING MAINTENANCE REPAIRER Phone (Outgoing) Kale Baird (Self) [phone] (M) Talked with Patient 06/20/2025 12:22 PM BUILDING MAINTENANCE REPAIRER Phone (Outgoing) [facility] [address] (Pharmacy) [phone] 06/20/2025 12:23 PM BUILDING MAINTENANCE REPAIRER Phone (Outgoing) KhadardheerajKale phillips (Self) [phone] (M) Left Message Attempted to reach patient to: Relay a message Regarding: Trulicty dose Action to take: OK to relay (verbatim): Please notify pt of below message from Dr. Marinelli. Okay to route to RN line if pt has further questions/concerns. tell patient that I prefer he increase his trulicity to 3mg and decrease his glipizide dosing by half as that will help him to lose weight and keep his A1c down. Is there a reason he doesn't want the higher dose of Trulicity (cost, side effects etc?) it is important he watch his BS, especially ifhe has low BG symptoms.Have him call back if having problems. DING MAINTENANCE REPAIRER * Telephone Encounter - Dominique Garza LPN - 06/20/2025 12:07 PM BUILDING MAINTENANCE REPAIRER Called and spoke with pt. Pt states that the script needs to be sent for 3mg once a week. Pt is currently using 1.75mg but is able to use up to 3mg weekly. Script will be updated with [facility]. Verbal adjustment made with [facility] pharmacy for pt to receive medications. DING MAINTENANCE REPAIRER DING MAINTENANCE REPAIRER * Telephone Encounter - Maricel Marinelli MD - 06/20/2025 12:04 PM BUILDING MAINTENANCE REPAIRER Please tell patient that I prefer he increase his trulicity to 3mg and decrease his glipizide dosing by half as that will help him to lose weight and keep his A1c down. Is there a reason he doesn't want the higher dose of Trulicity (cost, side effects etc?) BTW if you look at the complete series of messages, it originally said he was upset a Rx for 3mg had not been done. So it is important he watch his BS, especially if he has low BG symptoms.Have him call back if having problems. DING MAINTENANCE REPAIRER * Telephone Encounter - Madelaine Talbert - 06/20/2025 10:45 AM CST Tristan, Patient is upset, he contacted [facility], it seems his dosing for Trulicity was written for 3mg daily. He is injecting 1.5mg weekly. Could this please be remedied a soon as possible? Thank you, Madelaine Talbert Prescription Aircraft Worker Prescription Assistance Program Department Pool: [facility] DING MAINTENANCE REPAIRER * Telephone Encounter - Eileen Mackenzie MA - 06/16/2025 5:26 PM CST Done and faxed. Eileen Mackenzie MA on 06/16/2025 at 5:26 PM DING MAINTENANCE REPAIRER * Telephone Encounter - Kait Braxton MA - 06/16/2025 1:20 PM CST Printed and placed in DR Marinelli inbox DING MAINTENANCE REPAIRER * Telephone Encounter - Leonides Bonner - 06/16/2025 12:18 PM CST Images from the original note were not included. Received Message from Pt upset that a new script was not sent for 3 mg Trulicity a week ago. Started Form, Please Review and complete.(In Media Tab) Thank you DING MAINTENANCE REPAIRER * Telephone Encounter - Maricel Marinelli MD - 06/15/2025 9:48 PM BUILDING MAINTENANCE REPAIRER Can we get MTM to help figure out what needs to be done? I believe it was they who helped the pt toget the medication at discount or free gómez. Or can Kait tell what's going on with this med? Need switch or vials or what? DING MAINTENANCE REPAIRER * Telephone Encounter - Rosangela Whitfield RN - 06/13/2025 12:31 PM CST Spoke with [employer]. The retail representative stated they can no longer fill dulaglutide and that theyhave a department who might know where it can be filled. The wait time for this department was verylong so I was unable to speak with anyone about it at this time. Routing this information to the patient's PCP in case they know anywhere else this medication can be filled at a discounted rate. Rosangela Whitfield RN [facility] DING MAINTENANCE REPAIRER * Telephone Encounter - Alka Lacy I - 06/13/2025 10:29 AM CST General Call Contacts Contact Date/Time Type Contact Phone/Fax 06/13/2025 10:29 AM BUILDING MAINTENANCE REPAIRER Phone (Incoming) Kale Baird (Self) [phone] (M) Reason for Call: Medication question What are your questions or concerns: Pt called and stated [facility] didn't receive his Rx that was sent on 06/09/2025. TC advised that we have confirmation that they received it at 1:08PM BUILDING MAINTENANCE REPAIRER. Pt is wondering if someone from the clinic can call the pharmacy for him and confirm that they have it or not. Pt is wondering if we can find out when the mailed it to him if they did receive it. Dulaglutide 3 MG/0.5ML SOAJ 2 mL 1 06/07/2025 -- No Sig - Route: Inject 3 mg subcutaneously once a week. - Subcutaneous Date of last appointment with provider: 06/02/2025 Could we send this information to you in [facility] or would you prefer to receive a phone call?: Patient would prefer a phone call Okay to leave a detailed message?: Yes at Cell number on file: Telephone Information: Alka Lacy DING MAINTENANCE REPAIRER documented in this encounter Plan of Treatment DateTypeDepartmentCare Team (Latest Contact Info)Thfbfydiark34/06/2026 1:00 PM CSTLab [facility] [address] [place] [phone] 08/12/2025 2:00 PM CSTOffice Visit [facility] [address] [phone] Ashleigh Walden MD [address] [place] [address] [phone] documented as of this encounter Visit Diagnoses Diagnosis Type 2 diabetes mellitus with hyperglycemia, without long-term current use of insulin (H) documented in this encounter Care Teams Team MemberRelationshipSpecialtyStart DateEnd Date Maricel Marinelli MD [address] [facility] [address] [address] PCP - GeneralFamily Vymaahwf34/23/25 Maricel Marinelli MD [address] [facility] [address] [address] Assigned PCP01/20/21 Ashleigh Walden MD [address] [facility] [address] [address] Germanrology09/21/22 Ashleigh Walden MD [address] [facility] [address] [address] Assigned Nephrology Provider10/08/22 Ashleigh Walden MD [address] [facility] [address] [address] Germanrology04/19/23documented as of this encounter
--- OUTSIDE RECORDS SUMMARY | 2025-07-24 13:23 | XMS_ITS | Encounter Summary ---
Author Organization [facility] Address [address] [place] [address] Care Team Providers Care Interpretive Naturalist Name Role Phone Maricel López MD Unavailable [phone] Ashleigh Walden MD Unavailable [phone] Ashleigh Walden MD Unavailable [phone] Ashleigh Walden MD Unavailable [phone] Maricel López MD Primary Care Provider [phone] Reason for Referral * Medication Prior Authorization - ClosedSpecialtyDiagnoses / ProceduresReferred By ContactReferred To Contact Diagnoses Type 2 diabetes mellitus with stage 3a chronic kidney disease, without long-term current use of insulin (H) Maricel López MD [address] [place] [address] Phone: tel: fax: Referral IDStatusReasonStart DateExpiration DateVisits RequestedVisits [id number] [facility] [[email or web address] Reason for Visit * ReasonOnset DateCommentsPrior Auth - Oupqixsttz13/05/[id number] Jardiance PAP Renewal Encounter Details DateTypeDepartmentCare Team (Latest Contact Info)Ysrvvdwymgq94/05/2025Telephone [address] [place] [address] Maricel López MD [address] [facility] [address] [place] [address] Prior Auth - Medication (2025 Jardiance PAP Renewal) Social History Tobacco UseTypesPacks/DayYears UsedDateSmoking Tobacco: NeverPassive Smoke Exposure: PastSmokeless Tobacco: NeverAlcohol UseStandard Drinks/WeekCommentsYes 0.8 (1 standard drink = 0.6 oz pure alcohol)special occasions onlyPHQ-2Answer Date RecordedPHQ-2 Wjnqo026dolescent EducationAnswerDate Recorded Getting School Help NeededNot on file04/29/2023Food InsecurityAnswerDate RecordedWithin the past 12 months, did [...] in an abandoned building, in an overnight detention, or couch-surfing.)Yes06/01/2023re you worried about losing your [...] need?No06/01/2023Sex and Gender InformationValueDate RecordedSex Assigned at UwsauJibj14/23/2022 2:52 PM CSTLegal FluKvye7410/27/2020 4:43 PM CDTGender IbqztnetItmx33/23/2022 2:52 PM CHARTER AND TOUR BUS DRIVER Sexual YtyxhsmfoemHpeltgec12/23/2022 2:52 PM CSTdocumented as of this encounter Miscellaneous Notes * Telephone Encounter - Madelaine Talbert - 07/22/2025 10:08 AM CST Faxed patients documents, waiting on PT's forms to be mailed back. TER AND TOUR BUS DRIVER * Telephone Encounter - Maricel López MD - 07/12/2025 8:42 PM CHARTER AND TOUR BUS DRIVER Could you please verify that this had been done correctly? Thanks TER AND TOUR BUS DRIVER * Telephone Encounter - Eileen Russell MA - 07/11/2025 5:13 PM CST Refill for Jardiance pended for convenience and to be sent to [facility] per advocate for pharmacy assistance. Eileen Russell MA on 07/11/2025 at 5:13 PM TER AND TOUR BUS DRIVER * Telephone Encounter - Madelaine Talbert - 07/11/2025 1:56 PM CST [facility] has requested financial assistance due to the cost of Jardiance (re-enrollment). The provider portion of the application has been *uploaded to the patient media tab. Please send 90 day/ refill electronic prescriptions -[facility] I- [id number] in the eRX software. Then sign, date and FAX the application directly to the extension worker. Thank you for your assistance, Madelaine Talbert Prescription Tube Making Machine Operator Prescription Assistance Program Department Pool: RXAssist *The RX Assist Department, PAP applications are transitioning (primarily) to an electronic workflow; [employer] [place], [employer] and Email. The team is excited to serve our patients with this new expedited process! TER AND TOUR BUS DRIVER * Telephone Encounter - Madelaine Talbert - 07/11/2025 1:55 PM CST FREE DRUG APPLICATION INITIATED Medication: JARDIANCE 10 MG PO TABS Free Drug Program Name: [employer] Date Submitted: 07/11/2025 1:55 PM Additional Information: Forms mailed to PT, uploaded to Media file for MD TER AND TOUR BUS DRIVER * Addendum Note - Eileen Russell MA - 07/11/2025 1:54 PM CSTAddended by: EILEEN RUSSELL on: 07/11/2025 05:15 PM Modules accepted: Orders TER AND TOUR BUS DRIVER * Addendum Note - Maricel López MD - 07/11/2025 1:54 PM CSTAddended by: MARICEL LÓPEZ on: 07/12/2025 08:38 PM Modules accepted: Orders TER AND TOUR BUS DRIVER documented in this encounter Plan of Treatment DateTypeDepartmentCare Team (Latest Contact Info)Slmnxdrwnup65/06/2026 1:00 PM CSTLab [facility] [address] 1st [place] [address] 08/12/2025 2:00 PM CSTOffice Visit [facility] [address] [phone] Ashleigh Walden MD [address] [place] [phone] documented as of this encounter Visit Diagnoses Diagnosis Type 2 diabetes mellitus with stage 3a chronic kidney disease, without long-term current use of insulin (H) documented in this encounter Care Teams Team MemberRelationshipSpecialtyStart DateEnd Date Maricel López MD [address] [facility] [address] [address] PCP - GeneralFamily Xmqmwkcn55/23/25 Maricel López MD [address] [facility] [address] [place] [address] Assigned PCP01/20/21 Ashleigh Walden MD [address] [facility] [address] [place] [address] Germanrology09/21/22 Ashleigh Walden MD [address] [facility] [address] [place] [address] Assigned Nephrology Provider10/08/22 Ashleigh Walden MD [address] [facility] [address] [place] [address] Germanrology04/19/23documented as of this encounter
--- OUTSIDE RECORDS SUMMARY | 2025-07-24 13:23 | XMS_ITS | Encounter Summary ---
Author Organization [facility] Address [address] [place] [address]. [place] [address] Care Team Providers Care Dentistry Professor Name Role Phone Maricel Marinelli MD Unavailable [phone] Ashleigh Walden MD Unavailable [phone] Ashleigh Walden MD Unavailable [phone] Ashleigh Walden MD Unavailable [phone] Maricel Marinelli MD Primary Care Provider + [phone] Encounter Details DateTypeDepartmentCare Team (Latest Contact Info)Lygubspdade25/01/2025Results Follow-Up [address] [place] [phone] Maricel Marinelli MD [address] [place] [address] [id number] Subj: Message about your results Social History Tobacco UseTypesPacks/DayYears UsedDateSmoking Tobacco: NeverPassive Smoke Exposure: PastSmokeless Tobacco: NeverAlcohol UseStandard Drinks/WeekCommentsYes 0.8 (1 standard drink = 0.6 oz pure alcohol)special occasions onlyPHQ-2Answer Date RecordedPHQ-2 Dmhes740dolescent EducationAnswerDate Recorded Getting School Help NeededNot on [...] in an abandoned building, in an overnight mcfp, or couch-surfing.)Yes06/01/2023re you worried about losing your [...] need?No06/01/2023Sex and Gender InformationValueDate RecordedSex Assigned at AtgkxEivf64/23/2022 2:52 PM CSTLegal DunYqcs6810/27/2020 4:43 PM CDTGender VbnleagdBmtc69/23/2022 2:52 PM RN INTEGRATED Sexual YfvlxasodedSppfybcd56/23/2022 2:52 PM CSTdocumented as of this encounter Miscellaneous Notes * Telephone Encounter - Lesa Ponce CMA - 06/09/2025 7:14 AM RN INTEGRATED Results letter printed and mailed INTEGRATED * Telephone Encounter - Maricel Marinelli MD - 06/07/2025 10:54 PM CDT Result letter composed--please mail. documented in this encounter Plan of Treatment DateTypeDepartmentCare Team (Latest Contact Info)Twxpcxlhtyg83/06/2026 1:00 PM CSTLab [facility] [place] [address] [facility] 1st [place] [phone] 08/12/2025 2:00 PM CSTOffice Visit [facility] [address] [phone] Ashleigh Walden MD [address] [place] [address] documented as of this encounter Visit Diagnoses Not on filedocumented in this encounter Care Teams Team MemberRelationshipSpecialtyStart DateEnd Date Maricel Marinelli MD [address] [place] [address] PCP - GeneralFamily Elghpnwe16/23/25 Maricel Marinelli MD [address] [place] [address] Assigned PCP01/20/21 Ashleigh Walden MD [address] [place] [address] [facility]09/21/22 Ashleigh Walden MD [address] [place] [address] [address] Assigned Nephrology Provider10/08/22 Ashleigh Walden MD [address] [place] [address] [address] [facility]04/19/23documented as of this encounter
--- OUTSIDE RECORDS SUMMARY | 2025-07-24 13:23 | XMS_ITS | Encounter Summary ---
Author Organization [place] [facility] Address [address] [place] [address] Care Team Providers Care Sales Lead Generator Name Role Phone Maricel López MD Unavailable [phone] Ashleigh Walden MD Unavailable [phone] Ashleigh Walden MD Unavailable [phone] Ashleigh Walden MD Unavailable [phone] Maricel López MD Primary Care Provider [phone] Reason for Referral * Medication Prior Authorization - AuthorizedSpecialtyDiagnoses / Procedures Referred By ContactReferred To Contact Diagnoses Type 2 diabetes mellitus with stage 3a chronic kidney disease, without long-term current use of insulin (H) Maricel López MD [address] [place] [address] Phone: tel: fax: Referral IDStatusReasonStart DateExpiration DateVisits RequestedVisits [id number]/8/202512/7/202611 [facility] Reason for Visit * ReasonOnset DateCommentsPrior Auth - Jkvdrxvzoo85/25/[id number] PAP Renewals Encounter Details DateTypeDepartmentCare Team (Latest Contact Info)Zpdjuqscvnt58/25/2025Telephone [address] [place] [address] Maricel López MD [address] [facility] [address] [place] [address] Prior Auth - Medication (2025 PAP Renewals) Social History Tobacco UseTypesPacks/DayYears UsedDateSmoking Tobacco: NeverPassive Smoke Exposure: PastSmokeless Tobacco: NeverAlcohol UseStandard Drinks/WeekCommentsYes 0.8 (1 standard drink = 0.6 oz pure alcohol)special occasions onlyPHQ-2Answer Date RecordedPHQ-2 Ltgga397dolescent EducationAnswerDate Recorded Getting School Help NeededNot on [...] in an abandoned building, in an overnight long term, or couch-surfing.)Yes06/01/2023re you worried about losing your [...] need?No06/01/2023Sex and Gender InformationValueDate RecordedSex Assigned at YnomoFbep09/23/2022 2:52 PM CSTLegal TzaGbsd8410/27/2020 4:43 PM CDTGender WnkrylynHojw85/ 2:52 PM LEATHER TOOLER Sexual MjuzfqqovtsRifpfzpl76/23/2022 2:52 PM CSTdocumented as of this encounter Miscellaneous Notes * Telephone Encounter - Madelaine Talbert - 07/22/2025 10:07 AM CST Faxed patients documents, waiting on PT's forms to be mailed back. HER TOOLER * Telephone Encounter - Maricel López MD - 07/12/2025 8:40 PM LEATHER TOOLER Could you please verify that this was done correctly? Thanks HER TOOLER * Telephone Encounter - Madelaine Talbert - 07/11/2025 1:52 PM CST [facility] has requested financial assistance due to the cost of Trulicity (re-enrollment). The provider portion of the application has been *uploaded to the patient media tab. Please send 120 day/2 refill electronic prescription -[facility] NPI-[id number] inthe eRX software. Then sign, date and FAX the application directly to the digital forensic analyst. Thank you for your assistance, Madelaine Talbert Prescription Renewable Energy Trader Prescription Assistance Program Department Pool: RXAssist *The RX Assist Department, PAP applications are transitioning (primarily) to an electronic workflow; [employer], [employer] and Email. The team is excited to serve our patients with this new expedited process! HER TOOLER * Telephone Encounter - Madelaine Talbert - 06/20/2025 10:53 AM CST FREE DRUG APPLICATION INITIATED Medication: TRULICITY 1.5 MG/0.5ML SC SOAJ Free Drug Program Name: [employer] [facility] Date Submitted: 05/31/2025 5:40 PM Will need to mail apps HER TOOLER * Addendum Note - Eileen Russell MA - 05/31/2025 5:39 PM CDTAddended by: EILEEN RUSSELL on: 07/11/2025 05:13 PM Modules accepted: Orders HER TOOLER * Addendum Note - Maricel López MD - 05/31/2025 5:39 PM CDTAddended by: MARICEL LÓPEZ on: 07/12/2025 08:37 PM Modules accepted: Orders HER TOOLER documented in this encounter Plan of Treatment DateTypeDepartmentCare Team (Latest Contact Info)Zuupltkzkwl60/06/2026 1:00 PM CSTLab [facility] [address] [phone] 08/12/2025 2:00 PM CSTOffice Visit [facility] [address] [phone] Ashleigh Walden MD [address] [place] [address] documented as of this encounter Visit Diagnoses Diagnosis Type 2 diabetes mellitus with stage 3a chronic kidney disease, without long-term current use of insulin (H) documented in this encounter Care Teams Team MemberRelationshipSpecialtyStart DateEnd Date Maricel López MD [address] [facility] [address] [address] PCP - GeneralFamily Iusghiib74/23/25 Maricel López MD [address] [facility] [address] [address] Assigned PCP01/20/21 Ashleigh Walden MD [address] [facility] [address] [address] Germanrology09/21/22 Ashleigh Walden MD [address] [facility] [address] [address] Assigned Nephrology Provider10/08/22 Ashleigh Walden MD [address] [facility] [address] [address] Germanrology04/19/23documented as of this encounter
--- OUTSIDE RECORDS SUMMARY | 2025-07-24 13:23 | XMS_ITS | Clinical Summary ---
Author Organization [facility] Address [address] [place] [id number] Care Team Providers Care Document Control Assistant Name Role Phone Maricel Marinelli MD Unavailable [phone] Ashleigh Walden MD Unavailable [phone] Ashleigh Walden MD Unavailable [phone] Ashleigh Walden MD Unavailable [phone] Maricel Marinelli MD Primary Care Provider [phone] Allergies No known active allergies Medications MedicationSigDispense QuantityRefillsLast FilledStart DateEnd DateStatus aspirin 81 MG EC tablet Indications:Cerebrovascular accident (CVA), unspecified mechanism (H)Take 1 tablet (81 mg) by mouth daily 90 tablet ctive Additional Information Patient taking differently:81 mg Oral DAILY, PT reports taking 4 times a week due to stomach upset, Reported on 06/02/2025 magnesium oxide 400 MG CAPS Indications:Encounter for general health examinationTake 1 capsule by mouth daily 90 capsule ctive vitamin B-Complex Indications:Encounter for general health examinationTake 1 tablet by mouth daily 90 tablet ctive vitamin C (ASCORBIC ACID) 1000 MG TABS Indications:Encounter for general health examinationTake 1 tablet (1,000 mg) by mouth daily 90 tablet ctive zinc gluconate 50 MG tablet Indications:Encounter for general health examinationTake 1 tablet (50 mg) by mouth daily 90 tablet ctive Vitamin D3 (CHOLECALCIFEROL) 25 mcg (1000 units) tablet Take 1 tablet by mouth every eveningActive amLODIPine (NORVASC) 2.5 MG tablet Indications:Essential hypertensionTAKE 1 TABLET(2.5 MG) BY MOUTH DAILY 90 tablet 5Active rosuvastatin (CRESTOR) 5 MG tablet Indications:Primary hypercholesterolemiaTAKE 1 TABLET(5 MG) BY MOUTH AT BEDTIME 90 tablet 5Active metFORMIN (GLUCOPHAGE) 1000 MG tablet Indications:Type 2 diabetes mellitus with stage 3a chronic kidney disease, without long-term current use of insulin (H)Take 1 tablet (1,000 mg) by mouth 2 times daily (with meals). 180 tablet 5Active lisinopril (ZESTRIL) 20 MG tablet Indications:Essential hypertensionTake 1 tablet (20 mg) by mouth 2 times daily. 180 tablet 5Active fenofibrate (TRICOR) 48 MG tablet Indications:Mixed hyperlipidemiaTake 1 tablet (48 mg) by mouth daily at 2 pm. 90 tablet 5Active glipiZIDE (GLUCOTROL) 10 MG tablet Indications:Type 2 diabetes mellitus with stage 3a chronic kidney disease, without long-term current use of insulin (H)TAKE 2 TABLETS BY MOUTH TWICE DAILY BEFORE MEALS 360 tablet 5Active Dulaglutide 3 MG/0.5ML SOAJ Indications:Type 2 diabetes mellitus with hyperglycemia, without long-term current use of insulin (H)Inject 3 mg subcutaneously once a week. 2 mL 5Active TRULICITY 1.5 MG/0.5ML pen Indications:Type 2 diabetes mellitus with stage 3a chronic kidney disease, without long-term current use of insulin (H)Inject 1.5 mg subcutaneously every 7 days. 8 mL 5Active JARDIANCE 10 MG TABS tablet Indications:Type 2 diabetes mellitus with stage 3a chronic kidney disease, without long-term current use of insulin (H)Take 1 tablet (10 mg) by mouth daily. 90 tablet 5Active TRULICITY 1.5 MG/0.5ML pen Indications:Type 2 diabetes mellitus with stage 3a chronic kidney disease, without long-term current use of insulin (H)Inject 1.5 mg subcutaneously every 7 days. 10 mL Discontinued(Reorder (No AVS)) JARDIANCE 10 MG TABS tablet Indications:Type 2 diabetes mellitus with stage 3a chronic kidney disease, without long-term current use of insulin (H)TAKE ONE TABLET BY MOUTH DAILY 90 tablet Discontinued(Reorder (No AVS)) Active Problems ProblemNoted DateDiagnosed DateType 2 diabetes mellitus with diabetic chronic kidney tppdgqy3710/28/2024Obesity with serious xnyhdpeqozk17/26/2023ehydration 04/14/20226119Dskbrazjnocdz26/08/2022Elevated fuwpkymo48/08/2022yncope, unspecified syncope type04/14/2022Mixed dllfzslwapsczd60/15/2022tage 3a chronic kidney vwdnpnm6103/02/2021sophageal yxhzad3201/11/2021 Overview (01/11/2021): Created by Conversion Gait ortkpmeixy01/07/2021ervical stenosis of spinal canal01/11/2021pinal stenosis of lumbar region with neurogenic shcwmdzuwjrh78/07/2021ersonal history of transient ischemic attack (TIA), and cerebral infarction without residual tmcimzpy76/03/0015Wmhhwwkq01/23/2021 Overview (01/11/2021): Created by Conversion Created by Conversion Thwfafnx00/11/2020Vitamin D flnmuqbskq71/01/2018Type 2 diabetes mellitus with hyperglycemia, without long-term current use of hqlcwfc8406/04/2012 Overview (01/11/2021): Created by Conversion Created by Conversion Essential bzltcrlilakr91/20/2011 Overview (01/11/2021): Created by Conversion Replacement Utility updated for latest IMO load Created by Conversion Replacement Utility updated for latest IMO load Resolved Problems ProblemNoted DateDiagnosed DateResolved DateThrombotic izteewmytiunflx21/26/2023 5Acute kidney zeeftk38/erebrovascular accident (CVA), unspecified nlyptqwgl69/cute respiratory failure with hypoxia /1Pneumonia due to COVID-19 virus/ Encounters DateTypeDepartmentCare QpjzXsplqbyeqkm37/05/2025Telephone [address], [place] [address] [facility] [place] [address] Maricel Marinelli MD Prior Auth - Medication (2025 Jardiance PAP Renewal)06/13/2025Telephone [address], [place] [address] [facility] [place] [address] Maricel Marinelli MD Medication Dbzmasjj05/01/2025Results Follow-Up [address], [facility] [address] [facility] [place] [address] Maricel Marinelli MD Subj: Message about your tyxhstq6606/06/2025Refill [address], [place] [address] [facility] [place] [address] Maricel Marinelli MD 06/06/2025Telephone [address], [place] [address] [facility] [place] [address] Maricel Marinelli MD 06/02/2025 2:00 PM CDTOffice Visit [address], [place] [address] [facility] [place] [address] Maricel Marinelli MD Type 2 diabetes mellitus with stage 3a chronic kidney disease, without long-term current use of insulin (H) (Primary Dx); Essential hypertension; Stage 3a chronic kidney disease (H); Mixed hyperlipidemia; Class 1 obesity due to excess calories with serious comorbidity and body mass index (BMI) of 32.0 to 32.9 in adult; Immunization due06/02/20258371Srdpuv29/25/2025Telephone [address], [place] [address] [place] [address] Maricel Marinelli MD Prior Auth - Medication (2025 PAP Renewals)05/29/2025Refill [address], [place] [address] [place] [address] Maricel Marinelli MD Medication Usjmpe4205/05/2025MyC Medical Advice [address], [place] [address] [facility] [place] [address] Andreina Jiménez MA from Last 3 Months Immunizations ImmunizationAdministration DatesNext DueCOVID-19 12+ (Pfizer)06/02/2025, 06/27/2024,02/22/2024,06/01/2023OVID-19 Bivalent 12+ (Pfizer)01/24/2023, 2COVID-19 MONOVALENT 12+ (Pfizer)05/20/2021OVID-19 Monovalent 12+ (Pfizer 2021)02/10/2022Influenza (High Dose) Trivalent,PF (Fluzone)06/02/2025, 06/27/2024,04/27/2020,06/04/2019,05/04/2018,04/28/2017,04/08/2016,06/15/2015 Influenza (IIV3) PF05/04/2012,05/17/2011,05/25/2010Influenza Vaccine 65+ (Fluzone HD)06/01/2023,06/13/2022,05/20/2021,04/28/2020Influenza Vaccine >6 months,quad, PF05/08/2013Influenza Vaccine, 6+MO IM (QUADRIVALENT W/PRESERVATIVES)05/04/2012Pneumo Conj 13-V (2010&after)06/15/2015Pneumococcal 23 warmua5206/04/2019,09/06/2013TDAP (Adacel,Boostrix)09/06/2013Zoster vaccine, live 06/15/2015 Family History Medical HistoryRelationCommentsDiabetesFatherRelationStatusCommentsFatherAlive MotherDeceased (Age 96) Social History Tobacco UseTypesPacks/DayYears UsedDateSmoking Tobacco: NeverPassive Smoke Exposure: PastSmokeless Tobacco: Never Tobacco Cessation:Counseling Given: No Alcohol UseStandard Drinks/WeekCommentsYes0.8 (1 standard drink = 0.6 oz pure alcohol)special occasions onlyPHQ-2AnswerDate RecordedPHQ-2 Vijkm646 Adolescent EducationAnswerDate RecordedGetting School Help NeededNot on file 04/29/2023Food InsecurityAnswerDate RecordedWithin the past 12 months, did you worry that your food would run out before you got money to buy more?No06/01/2023 Within the past 12 months, did the food you bought just not last and you didn???t have money to getmore?No06/01/2023Housing StabilityAnswerDate Recorded Do you have housing? (Housing is defined as stable permanent housing and does not include staying outside in a car, in a tent, in an abandoned building, in an overnight residential, or couch-surfing.)Yes06/01/2023re you worried about losing your housing?No06/01/2023Financial Resource StrainAnswerDate RecordedWithin the past 12 months, have you or your family members you live with been unable to get utilities (heat, electricity) when it was really needed?No06/01/2023 Transportation NeedsAnswerDate RecordedWithin the past 12 months, has lack of transportation kept you from medical appointments, getting your medicines, non- medical meetings or appointments, work, or from getting things that you need?No 06/01/2023Sex and Gender InformationValueDate RecordedSex Assigned at BirthMale 08/29/2021 2:52 PM CSTLegal DwiTaqq8510/27/2020 4:43 PM CDTGender IdentityMale 08/29/2021 2:52 PM CSTSexual ZmkmbpxjvkfGgjthnnj06/23/2022 2:52 PM 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 Vital Signs Vital SignReadingTime TakenCommentsBlood Sxfhvawm580/7806/02/2025 1:47 PM CDT Klqbr918606/02/2025 1:47 PM IQQNikfncxvbph73.5 ??C (97.7 ??F)06/02/2025 1:47 PM CDTRespiratory Pwzj0717 1:47 PM CDTOxygen Mutzqnrgif96%06/02/2025 1:47 PM CDTInhaled Oxygen Concentration--Vftkxp131.6 kg (239 lb 6.4 oz)06/02/2025 1:47 PM SRMUxkhgh217.9 cm (6')06/02/2025 1:47 PM CDTBody Mass Index32.47 06/02/2025 1:47 PM CDT Plan of Treatment DateTypeDepartmentCare Team (Latest Contact Info)Mjjtvngigdu50/06/2026 1:00 PM CSTLab [facility] [address] 1st [place] [phone] 08/12/2025 2:00 PM CSTOffice Visit [facility] [address] [phone] Ashleigh Walden MD [address] [place] [id number] Health MaintenanceDue DateLast DoneCommentsZOSTER VACCINE (2 of 3)08/10/2015 06/15/2015EYE EXAM2108/21/2020, 02/24/2021, 12/28/2017DTAP/TDAP/TD VACCINE (2 - Td or Tdap)RSV VACCINE (1 - 1-dose 75+ series) 2024MEDICARE ANNUAL WELLNESS VISITNNUAL REVIEW OF HM BOXJGF95, 06/01/2023, 06/13/2022, Additional history exists DIABETIC FOOT EXAM, 10/02/2023, 06/13/2022, Additional history brjlohF7K96, 02/27/2025, 10/28/2024, Additional history existsCOVID-19 VACCINE ( season), 06/27/2024, 02/22/2024, Additional history upgxdfXOLEHIIIXS49, 10/28/2024, 05/16/2024, Additional history xtoankOBAJLIIZDRPY95/01/2026 02/04/2025, 02/22/2024, 01/24/2023, Additional history dgybbsPTXZV52/24/2026 02/27/2025, 06/27/2024, 02/22/2024, Additional history ezvrvxHUI23/27/2026 06/02/2025, 02/04/2025, 10/28/2024, Additional history existsFALL RISK KVECLSGNXQ71, 06/27/2024, 06/01/2023, Additional history existsADVANCE CARE KVPTUHDB32, 1PNEUMOCOCCAL VACCINE 50+ FBAXQRrvsfverg99/29/2019, 06/15/2015, 09/06/2013HEPATITIS C SCREENING Xdxsbjpaa72/01/2023, 04/01/2019PHQ-2 (once per calendar year)Completed 10/28/2024, 10/02/2023, 06/01/2023, Additional history existsURINALYSISCompleted 02/04/2025, 05/16/2024, 11/16/2023, Additional history existsINFLUENZA VACCINE Jqlyoahna07/27/2025, 06/27/2024, 06/01/2023, Additional history existsHPV VACCINE (No Doses Required)CompletedMENINGITIS VACCINEAged OutNo longer eligible based on patient's age to complete this topic Procedures Procedure NamePriorityDate/TimeAssociated DiagnosisCommentsCOMPREHENSIVE METABOLIC QCGERWofmtit92/27/2025 2:30 PM CDT Essential hypertension Stage 3a chronic kidney disease (H) HEMOGLOBIN N2NWnnkmse80/27/2025 2:30 PM CDT Type 2 diabetes mellitus with stage 3a chronic kidney disease, without long-term current use of insulin (H) LIPID REFLEX TO DIRECT LDL GXXAFFvslpxu71/24/2025 2:16 PM CDT Mixed hyperlipidemia ROUTINE UA WITH LOKPFWYVBDJFskrjcj69/01/2025 2:57 PM CDT Stage 3a chronic kidney disease (H) ALBUMIN AND CREATININE WITH RATIO RANDOM URINE QUANTITATIVEAdd-On02/04/2025 2:57 PM CDT Type 2 diabetes mellitus with stage 3a chronic kidney disease, without long-term current use of insulin (H) CBC WITH YRQBEZZXYGttvpfr89/01/2025 2:40 PM CDT Stage 3a chronic kidney disease (H) HEPATITIS C SCREEN REFLEX TO HCV RNA QUANT AND KLUISMFAQbufioa95/01/2023 1:16 PM CDT Stage 3a chronic kidney disease (H) EYE EXAM - HIM TKFRXggikdz65/15/2021 from Last 3 Months or Most Recently Relevant to Health Maintenance Results * (ABNORMAL) Hemoglobin A1c (06/02/2025 2:30 PM CDT)ComponentValueRef RangeTest MethodAnalysis TimePerformed AtPathologist SignatureEstimated Average Glucose 160(H)<117 mg/dL06/02/2025 2:50 PM CDTCTGR LABORATORYHemoglobin A1C7.2(H)0.0 - 5.6 %06/02/2025 2:50 PM CDTCTGR LABORATORYComment: Normal <5.7% Prediabetes 5.7-6.4% ?? Diabetes 6.5% or higher Note: Adopted from ADA consensus guidelines. Specimen (Source)Anatomical Location / LateralityCollection Method / Volume Collection TimeReceived TimeBloodSTRUCTURE OF RIGHT UPPER LIMB / Unknown Venipuncture / Nmjibgi0906/02/2025 2:30 PM CDT1 2:31 PM CDT Narrative Authorizing ProviderResult TypeResult StatusElielvis Marinelli MDLAB - BLOOD ORDERABLESFinal ResultPerforming OrganizationAddressCity/State/ZIP CodePhone Number [facility] [address] * (ABNORMAL) Comprehensive metabolic panel (BMP + Alb, Alk Phos, ALT, AST, Total. Bili, TP) (06/02/2025 2:30 PM CDT)ComponentValueRef RangeTest Method Analysis TimePerformed AtPathologist MzncgdarqMelisf764259 - 145 mmol/L 06/04/2025 12:42 AM CDTUU LABORATORYPotassium4.73.4 - 5.3 mmol/L1 12:42 AM CDTUU LABORATORYCarbon Dioxide (CO2)2322 - 29 mmol/L1 12:42 AM CDTUU LABORATORYAnion Gkq075 - 15 mmol/L1 12:42 AM CDTUU LABORATORYUrea Lgxxcvqf59.68.0 - 23.0 mg/dL06/04/2025 12:42 AM CDTUU LABORATORYCreatinine1.36(H)0.67 - 1.17 mg/dL06/04/2025 12:42 AM CDTUU LABORATORYGFR Pvgxtaif66(L)>60 mL/min/1.39w61106/04/2025 12:42 AM CDTUU LABORATORYComment:eGFR calculated using 2020 CKD-EPI equation.Jkwubbv67.5(H) 8.8 - 10.4 mg/dL06/04/2025 12:42 AM CDTUU TEHCXUVDBBQhdswnxz17223 - 107 mmol/L 06/04/2025 12:42 AM CDTUU YKGXZRRYTAKpxsgjh563(H)70 - 99 mg/dL06/04/2025 12:42 AM CDTUU LABORATORYAlkaline Truqalgfuyf8480 - 150 U/L1 12:42 AM CDTUU XNTMMCVGCNITE082 - 45 U/L1 12:42 AM CDTUU OMHZVCNCVZTUH548 - 70 U/L 06/04/2025 12:42 AM CDTUU LABORATORYProtein Total7.06.4 - 8.3 g/dL06/04/2025 12:42 AM CDTUU LABORATORYAlbumin4.53.5 - 5.2 g/dL06/04/2025 12:42 AM CDTUU LABORATORYBilirubin Total0.6<=1.2 mg/dL06/04/2025 12:42 AM CDTUU LABORATORY Specimen (Source)Anatomical Location / LateralityCollection Method / Volume Collection TimeReceived TimeBloodSTRUCTURE OF RIGHT UPPER LIMB / Unknown Venipuncture / Xbwjqjj2906/02/2025 2:30 PM CDT1 2:31 PM CDT Narrative Authorizing ProviderResult TypeResult StatusElielvis Marinelli MDLAB - BLOOD ORDERABLESFinal ResultPerforming OrganizationAddressCity/State/ZIP CodePhone Number [facility] [place] [facility] [address] [facility], Room [address] [place] [phone] * (ABNORMAL) Lipid panel reflex to direct LDL Non-fasting (02/27/2025 2:16 PM CDT)ComponentValueRef RangeTest MethodAnalysis TimePerformed AtPathologist GhzfvmcqvFxtfdikfhkm194<200 mg/dL02/28/2025 12:00 AM CDTUU LABORATORY Nwbybrqhvzxzu523(H)<150 mg/dL02/28/2025 12:00 AM CDTUU LABORATORYDirect Measure HDL46>=40 mg/dL02/28/2025 12:00 AM CDTUU LABORATORYLDL Cholesterol Vhwmerbibo60<100 mg/dL02/28/2025 12:00 AM CDTUU LABORATORYComment:LDL calculated using the Friedewald equation.Non HDL Vxerebfyfdd60<130 mg/dL 02/28/2025 12:00 AM CDTUU LABORATORYPatient Fasting > 8hrs?Hhlwooi7502/28/2025 12:00 AM CDTUU LABORATORYSpecimen (Source)Anatomical Location / Laterality Collection Method / VolumeCollection TimeReceived TimeBloodSTRUCTURE OF RIGHT UPPER LIMB / UnknownVenipuncture / Svqjiml0302/27/2025 2:16 PM CDT02/27/2025 2:16 PM CDT Narrative [facility] - 02/28/2025 12:00 AM CDT Cholesterol Desirable: < 200 mg/dL Borderline High: 200 - 239 mg/dL High: >= 240 mg/dL Triglycerides Normal: < 150 mg/dL Borderline High: 150 - 199 mg/dL High: 200-499 mg/dL Very High: >= 500 mg/dL Direct Measure HDL Female: >= 50 mg/dL Male: >= 40 mg/dL LDL Cholesterol Desirable: < 100 mg/dL Above Desirable: 100 - 129 mg/dL Borderline High: 130 - 159 mg/dL High: ??160 - 189 mg/dL Very High: >= 190 mg/dL Non HDL Cholesterol Desirable: < 130 mg/dL Above Desirable: 130 - 159 mg/dL Borderline High: 160 - 189 mg/dL High: 190 - 219 mg/dL Very High: >= 220 mg/dL Authorizing ProviderResult TypeResult StatusElielvis Marinelli TNLAB - BLOOD ORDERABLESFinal ResultPerforming OrganizationAddressCity/State/ZIP CodePhone Number U [facility] [place] [facility] [address] [facility], [address] [phone] * (ABNORMAL) UA with Microscopic (02/04/2025 2:57 PM CDT)ComponentValueRef Range Test MethodAnalysis TimePerformed AtPathologist SignatureColor UrineLight YellowColorless, Straw, Light Yellow, Qtdpul9702/04/2025 3:20 PM CDTUCSC LABORATORY - CORE LABAppearance LnejkZnkupIgqri09/01/2025 3:20 PM CDTUCSC LABORATORY - CORE LABGlucose Xbzma019(A)Negative mg/dL02/04/2025 3:20 PM CDT [facility] CORE LABBilirubin FllylPjasvejqRiwrqlie77/01/2025 3:20 PM CDTUCSC LABORATORY - CORE LABKetones UrineNegativeNegative mg/dL02/04/2025 3:20 PM CDTUCSC LABORATORY - CORE LABSpecific [place] Urine1.0301.003 - 1.035 02/04/2025 3:20 PM CDTUCSC LABORATORY - CORE LABBlood UrineNegativeNegative 02/04/2025 3:20 PM CDTUCSC LABORATORY - CORE LABpH Urine6.55.0 - 7. 3:20 PM CDTUCSC LABORATORY - CORE LABProtein Albumin Urine10(A)Negative mg/dL 02/04/2025 3:20 PM CDTUCSC LABORATORY - CORE LABUrobilinogen UrineNormalNormal mg/dL02/04/2025 3:20 PM CDTUCSC LABORATORY - CORE LABNitrite UrineNegative Tojmthuw95/01/2025 3:20 PM CDTUCSC LABORATORY - CORE LABLeukocyte Esterase NptxtJvbrjprfWbtposxy00/01/2025 3:20 PM CDTUCSC LABORATORY - CORE LABRBC Urine 0<=2 /HPF02/04/2025 3:20 PM CDTUCSC LABORATORY - CORE LABWBC Urine0<=5 /HPF 02/04/2025 3:20 PM CDTUCSC LABORATORY - CORE LABSpecimen (Source)Anatomical Location / LateralityCollection Method / VolumeCollection TimeReceived Time UrineMID-STREAM URINE SPECIMEN / UnknownNon-blood Collection / Unknown 02/04/2025 2:57 PM CDT02/04/2025 2:57 PM CDT Narrative Authorizing ProviderResult TypeResult StatusNattakevin Walden MDLAB - URINE ORDERABLESFinal ResultPerforming OrganizationAddressCity/State/ZIP CodePhone Number [facility] - [address] 1st Floor [place] [address] * (ABNORMAL) Albumin Random Urine Quantitative with Creat Ratio (02/04/2025 2:57 PM CDT)ComponentValueRef RangeTest MethodAnalysis TimePerformed AtPathologist SignatureCreatinine Urine mg/dL43.9mg/dL02/04/2025 9:52 PM CDTUU LABORATORY Comment:The reference ranges have not been established in urine creatinine. The results should be integrated into the clinical context for interpretation. Albumin Urine mg/L200.0mg/L02/04/2025 9:52 PM CDTUU LABORATORYComment:The reference ranges have not been established in urine albumin. The results should be integrated into the clinical context for interpretation.Albumin Urine mg/g Cr455.58(H)0.00 - 17.00 mg/g Cr02/04/2025 9:52 PM CDTUU LAB[facility]ATORY Comment: Microalbuminuria is defined as an albumin:creatinine ratio of 17 to 299 for males and 25 to 299 forfemales. A ratio of albumin:creatinine of 300 or higher is indicative of overt proteinuria. Due to biologic variability, positive results should be confirmed by a second, first-morning randomor 24-hour timed urine specimen. If there is discrepancy, a third specimen is recommended. When 2 out of 3 results are in the microalbuminuria range, this is evidence for incipient nephropathy and warrants increased efforts at glucose control, blood pressure control, and institution of therapy withan pebxsvncvnr-vfzpejgyma-rfkqio (TANI) inhibitor (if the patient can tolerate it). ?? Specimen (Source)Anatomical Location / LateralityCollection Method / Volume Collection TimeReceived TimeUrineMID-STREAM URINE SPECIMEN / UnknownNon-blood Collection / Tcgvzlg5702/04/2025 2:57 PM CDT02/04/2025 5:01 PM CDT Narrative Authorizing ProviderResult TypeResult StatusNattakevin Walden MDLAB - URINE ORDERABLESFinal ResultPerforming OrganizationAddressCity/State/ZIP CodePhone Number [facility] [address] [facility], [address] [place] [address] * CBC with platelets (02/04/2025 2:40 PM CDT)ComponentValueRef RangeTest Method Analysis TimePerformed AtPathologist SignatureWBC Count7.94.0 - 11.0 10e3/uL 02/04/2025 2:45 PM CDTUCSC LABORATORY - CORE LABRBC Count5.054.40 - 5.90 10e6/uL02/04/2025 2:45 PM CDTUCSC LAB[facility]ATORY - CORE WZEQvkaccpbeu60.513.3 - 17.7 g/dL02/04/2025 2:45 PM CDTUCSC LAB[facility]ORY - CORE YKIBfpalohrzr17.940.0 - 53.0 %02/04/2025 2:45 PM CDTUCSC LAB[facility]ATORY - CORE FOPKAE3094 - 100 fL 02/04/2025 2:45 PM CDTUCSC [facility] - CORE XBXVAA74.726.5 - 33.0 pg 02/04/2025 2:45 PM CDTUCSC [facility] - CORE GLWGBNJ17.431.5 - 36.5 g/dL 02/04/2025 2:45 PM CDTUCSC [facility] - CORE RNRXJK89.210.0 - 15.0 %02/04/2025 2:45 PM CDTUCSC LAB[facility]ATORY - CORE LABPlatelet Zcraq288663 - 450 10e3/uL 02/04/2025 2:45 PM CDTUCSC LAB[facility]ATORY - CORE LABSpecimen (Source)Anatomical Location / LateralityCollection Method / VolumeCollection TimeReceived Time BloodBLOOD SPECIMEN / UnknownVenipuncture / Negsuyr3702/04/2025 2:40 PM CDT 02/04/2025 2:40 PM CDT Narrative Authorizing ProviderResult TypeResult Sandeep MOYER - BLOOD ORDERABLESFinal ResultPerforming OrganizationAddressCity/State/ZIP CodePhone Number [facility] [place] [facility] [place] [address] 1st Floor [place] [address] * Hepatitis C Screen Reflex to HCV RNA Quant and Genotype (04/07/2023 1:16 PM CDT)ComponentValueRef RangeTest MethodAnalysis TimePerformed AtPathologist SignatureHepatitis C PsxbniexFxljbunzrkdBafmqeaccqt62/02/2023 6:29 PM CDTUM SPECIALTY CORE/PROT/ENDOSpecimen (Source)Anatomical Location / Laterality Collection Method / VolumeCollection TimeReceived TimeBloodSTRUCTURE OF RIGHT UPPER LIMB / UnknownVenipuncture / Kutoupe0304/07/2023 1:16 PM CDT04/07/2023 1:16 PM CDT Narrative [facility]/ENDO - 04/08/2023 6:29 PM CDT Assay performance characteristics have not been established for newborns, infants, and children. Authorizing ProviderResult TypeResult StatusAshleigh MOYER - BLOOD ORDERABLESFinal ResultPerforming OrganizationAddressCity/State/ZIP CodePhone Number [facility]O [facility]Prot/Endo [address] [facility] [address], [address] [phone] * Eye Exam - HIM Scan (06/21/2021)ComponentValueRef RangeTest MethodAnalysis TimePerformed AtPathologist SignatureRETINOPATHYUNKNOWN Symone Espinosa - 06/21/2021 Lesa Ponce Abstract Quality Initiatives Please abstract the following data from this visit with this patient into the appropriate field in Epic: Tests that can be patient reported without a hard copy: Eye exam with ophthalmology on this date: 06/21/2021 Authorizing ProviderResult TypeResult StatusPatient ReportedOTHERFinal Result from Last 3 Months or Most Recently Relevant to Health Maintenance Insurance * Guarantor: Kale Baird TypeRelation to PatientDate of BirthPhone Billing AddressPersonal/ZxqgfmHkkk1950 [address] [address] * Guarantor: Kale Baird TypeRelation to PatientDate of BirthPhone Billing AddressPersonal/RywambPutw1950 [address] [address] * Guarantor: Kale Baird OLEGARIOccsylvia TypeRelation to PatientDate of BirthPhone Billing AddressMedication MquvwnxNdem1950 [address] [facility] [facility] [id number] Advance Directives For more information, please contact: [phone] * Full Code (Latest Code Status on File) Date ActivatedDate InactivatedComments04/15/2022 1:31 AM04/15/2022 4:53 PMAll basic and advanced life-sustaining interventions are performed as appropriateQuestion AnswerCommentsCode status determined by:* Discussion with patient/ legal decision maker Care Teams Team MemberRelationshipSpecialtyStart DateEnd Date Maricel Marinelli MD 6936 [facility] [address] [address] PCP - GeneralFamily Afatosaa28/23/25 Maricel Marinelli MD 6936 [facility] [address] [address] Assigned PCP01/20/21 Ashleigh Walden MD [address] [place] [address] [address] Germanrology09/21/22 Ashleigh Walden MD [address] [address] Assigned Nephrology Provider10/08/22 Ashleigh Walden MD 6936 [facility] [address] [address] Germanrology04/19/23
--- NOTE | 2025-07-24 13:35 | CRLHL7_ITS ---
For Patients: As a result of the Century Cures Act, medical imaging exams and procedure reports are released immediately into your electronic medical record. You may view this report before your referring provider. If you have questions, please contact your health care provider. Indication: 75-year-old fell and hit back of head. Pain. Technique: Routine cervical protocol with sagittal coronal reformatted images Comparison: None. Findings: Bones: No fractures, deformities or lesions. Disc spaces: Multilevel cervical spondylosis. Marked disc space narrowing C4-5 C5-6 and C6-7 with marginal spurring. Mild anterior pseudosubluxation C2 on C3 and C3 on C4. Multilevel facet degenerative changes. Soft tissues: No significant paravertebral soft tissue swelling. Right thyroid nodules and calcifications. Lung apices: No acute abnormalities. Visualized skull base: No acute abnormalities. Impression: 1. No acute cervical abnormalities.. 2. Chronic findings as above. Please note that all CT scans at this facility use dose modulation, iterative reconstruction, and/or weight-based dosing when appropriate to reduce radiation dose to as low as reasonably achievable. Dictated by Tyler Alvarado MD @ 07/24/2025 2:48:45 PM (Electronically Signed)
--- NOTE | 2025-07-24 13:35 | CRLHL7_ITS ---
For Patients: As a result of the Century Cures Act, medical imaging exams and procedure reports are released immediately into your electronic medical record. You may view this report before your referring provider. If you have questions, please contact your health care provider. INDICATION: Fall. COMPARISON: April 10, 2023 TECHNIQUE: CT head protocol without contrast. FINDINGS: CSF spaces: Moderate diffuse cerebral volume loss. Stable cavum septum pellucidum et vergae. No fluid collections. Ventricles: Commensurate with sulci. No Hydrocephalus. Brain parenchyma: No mass lesion, hemorrhage, or acute infarction. The reece-white differentiation is normal. Moderate multifocal areas of decreased attenuation in the white matter are non-specific but consistent with small vessel/ischemic changes. Midline Structures: Normal. No shift. Orbits: Bilateral pseudophakia Vessels: Moderate atherosclerotic calcifications. Ectatic bilateral vertebral and basilar arteries Paranasal sinuses: Normal. Mastoid sinuses: Normal. Skull base and calvarium: No fractures or significant abnormalities. IMPRESSION: 1. No new or acute intracranial abnormalities. 2. Chronic findings as above. Please note that all CT scans at this facility use dose modulation, iterative reconstruction, and/or weight-based dosing when appropriate to reduce radiation dose to as low as reasonably achievable. Dictated by Tyler Alvarado MD @ 07/24/2025 2:44:43 PM (Electronically Signed)
--- NOTE | 2025-07-24 14:51 | ED.HEATRA ---
HPI - Head Injury General Date Seen: 07/24/25 Chief complaint: Head Injury/Pain Stated complaint: fell, hit head Time Seen by Provider: 07/24/25 13:13 Source: patient Mode of arrival: ambulatory Limitations: no limitations History of Present Illness HPI Narrative: Patient is a 75-year-old male presenting to the emergency department after a fall. He states he was taking out the garbage bands symptoms fell hit the back of his head against the ground. He is able to get up right away. Family was concerned because he did not remember the next 10 minutes. Unsure he gives of concussions. Family states he is acting normal now normal he also states the is likely normal. Denies headache or neck pain. No other injuries noted. Denies any back pain. Is not on any blood thinners other than a takes a daily baby aspirin. No other concerns noted Related Data Home Medications ?Medication ?Instructions ?Recorded ?Confirmed aspirin 81 mg tablet,delayed 81 mg PO DAILY 10/25/22 04/10/23 release (Adult Low Dose Aspirin) dulaglutide 0.75 mg/0.5 mL 0.75 mg subcut QWEEK 10/25/22 04/10/23 subcutaneous pen injector (Trulicity) lisinopril 30 mg tablet 30 mg PO DAILY 10/25/22 04/10/23 rosuvastatin 20 mg tablet (Crestor) 20 mg PO DAILY 10/25/22 04/10/23 amlodipine 2.5 mg tablet 2.5 mg PO DAILY 04/10/23 04/10/23 fenofibrate nanocrystallized 48 mg 48 mg PO DAILY 04/10/23 04/10/23 tablet glipizide 10 mg tablet 20 mg PO BID 04/10/23 04/10/23 metformin 1,000 mg tablet 1,000 mg PO BID 04/10/23 04/10/23 pioglitazone 15 mg tablet 15 mg PO DAILY 04/10/23 04/10/23 Previous Rx's ?Medication ?Instructions ?Recorded meclizine 25 mg tablet 25 mg PO TID PRN dizziness #15 tabs 04/10/23 Allergies Allergy/AdvReac Type Severity Reaction Status Date / Time No Known Drug Allergies Allergy Verified 10/25/22 00:10 Review of Systems Status of ROS: Reports: 10 or more systems reviewed and unremarkable except as noted in History and below PFSH PFSH Social History Smoking Status: Never smoker Do you use any of these nicotine containing products: None How often do you have a drink containing alcohol: never AUDIT-C Alcohol total score: 0 Non-prescribed substance use: denies use service: Yes ([place]) Exam Narrative: Exam Narrative: Const: Well-nourished, Well-developed, in now distress Eyes: PERRL, no conjunctival injection, and symmetrical lids HENT: Atraumatic external nose and ears. Moist mucous membranes. No palpable skull fractures Neck: Symmetric, trachea midline, No thyromegaly. CVS: RRR, No murmurs or gallops. Peripheral pulses 2+ and equal in all extremities RESP: Unlabored respiratory effort. Clear to auscultation bilaterally. GI: Nontender/Nondistended, No rebound or guarding. MSK:Extremities w/o deformity, Normal Active ROM so, no cervical spine tenderness Skin: Warm, Dry. No rashes or lesions. Neuro: Normal Muscle tone, Cranial nerves 2-12 grossly intact, normal [id number], normal [id number], normal gait, normal strength 5/5 upper lower extremities bilaterally, normal sensation upper and lower extremities bilaterally, normal rapid alternating movements. Psych: Awake, Alert, & Oriented x3. Appropriate mood and affect. Const: Vital Signs, click to edit/add: Vital Signs - 24 hr 07/24/25 13:09 Temperature 96.9 F L Pulse Rate [Pulse Oximeter] 81 Respiratory Rate 16 Blood Pressure [Ri ght Upper Arm] 144/88 H Pulse Oximetry 98 Oxygen Delivery Me thod Room Air Course Vital Signs Vital signs: Initial Vital Signs Temperature 96.9 F L 07/24/25 13:09 Temperature Source Temporal Artery Scan 07/24/25 13:09 Pulse Rate 81 07/24/25 13:09 Pulse Rhythm Regular 07/24/25 13:09 Respiratory Rate 16 07/24/25 13:09 Blood Pressure 144/88 H 07/24/25 13:09 Blood Pressure Mean 106 H 07/24/25 13:09 Blood Pressure Position Sitting 07/24/25 13:09 Pulse Oximetry 98 07/24/25 13:09 Oxygen Delivery Method Room Air 07/24/25 13:09 Vital Signs Temperature 96.9 F L 07/24/25 13:09 Pulse Rate 81 07/24/25 13:09 Respiratory Rate 16 07/24/25 13:09 Blood Pressure 144/88 H 07/24/25 13:09 Pulse Oximetry 98 07/24/25 13:09 Oxygen Delivery Method Room Air 07/24/25 13:09 Temperature 96.9 F L 07/24/25 13:09 Pulse Rate 81 07/24/25 13:09 Respiratory Rate 16 07/24/25 13:09 Blood Pressure 144/88 H 07/24/25 13:09 Pulse Oximetry 98 07/24/25 13:09 Oxygen Delivery Method Room Air 07/24/25 13:09 MDM - Head Injury MDM Narrative Medical decision making narrative: Patient is a 75-year-old male presenting to emergency department after a fall. Sounds like he gave himself a slight concussion causing some amnesia that has since resolved. He is doing well at this time. Is not having any pain. With his age though in the history of will do CT scan of the head and cervical spine. His neurological exam is completely normal at this time. CT scans interpreted by myself the radiologist showed no acute concerning abnormalities. This time he is doing well and is safe for discharge. He is agreeable to this plan. Imaging Data CT scan head: Attestation: I have reviewed the pertinent imaging results. Radiologist's impression: 1. No new or acute intracranial abnormalities. 2. Chronic findings as above. Please note that all CT scans at this facility use dose modulation, iterative reconstruction, and/or weight-based dosing when appropriate to reduce radiation dose to as low as reasonably achievable. Dictated by Tyler Alvarado MD @ 07/24/2025 2:44:[address] scan cervical spine: Attestation: I have reviewed the pertinent imaging results. Radiologist's impression: 1. No acute cervical abnormalities.. 2. Chronic findings as above. Please note that all CT scans at this facility use dose modulation, iterative reconstruction, and/or weight-based dosing when appropriate to reduce radiation dose to as low as reasonably achievable. Dictated by Tyler Alvarado MD @ 07/24/2025 2:48:45 PM Discharge Plan Discharge Clinical Impression: Closed head injury Qualifiers: Encounter type: initial encounter Qualified Code(s): S09.90XA - Unspecified injury of head, initial encounter Patient Disposition: Home, Self-Care Condition: Stable Instructions: Head Injury (DC) Additional Instructions: Take Tylenol as needed for pain. Return to the emergency department for new or worsening symptoms. The episode of amnesia was likely related to a mild concussion. Prescriptions: No Action Trulicity 0.75 mg/0.5 mL pen injector 0.75 mg subcut QWEEK aspirin [Adult Low Dose Aspirin] 81 mg tablet,delayed release (DR/EC) 81 mg PO DAILY lisinopril 30 mg tablet 30 mg PO DAILY rosuvastatin [Crestor] 20 mg tablet 20 mg PO DAILY pioglitazone 15 mg tablet 15 mg PO DAILY glipizide 10 mg tablet 20 mg PO BID amlodipine 2.5 mg tablet 2.5 mg PO DAILY metformin 1,000 mg tablet 1,000 mg PO BID fenofibrate nanocrystallized 48 mg tablet 48 mg PO DAILY meclizine 25 mg tablet 25 mg PO TID PRN (Reason: dizziness) Qty: 15 0RF Follow Up/Referrals: Provider,Not a Local [Primary Care Provider, Family Practice] Stand Alone Forms: [employer]Know[employer] Info Instructions
== END 2025-07-24 15:25 | disposition home or self-care (01) ==
PROVIDERS: Emergency Provider Student in an Organized Health Care Education/Training Program
DX: S09.90XA Unspecified injury of head, initial encounter (principal); Z79.82 Long term (current) use of aspirin; W01.0XXA Fall on same level from slipping, tripping and stumbling without subsequent striking against object, initial encounter; Y93.01 Activity, walking, marching and hiking; Y92.008 Other place in unspecified non-institutional (private) residence as the place of occurrence of the external cause
CPT/HCPCS: 70450; 72125; 99284